=== PATIENT | female | born 1935 | race Caucasian/White ===

== ENCOUNTER 2025-06-09 09:17 | Emergency (ER) | payer MEDICARE, SELFPAY ==
--- NOTE | ~2025-06-09 | XR_ITS ---
EXAM/PROCEDURE: XR chest 1V portable - 06/09/2025 11:10 CDT HISTORY: 89 years old Female with syncope TECHNIQUE: Two view(s) of the chest. COMPARISON: 05/17/2024 FINDINGS: LUNGS/ PLEURA: No focal consolidation. No appreciable pneumothorax or large pleural effusion. HEART/ MEDIASTINUM: Heart appears normal in size. BONES: Degenerative changes. OTHER: Visualized upper abdomen is unremarkable. IMPRESSION: No acute process. Reviewed, dictated and finalized at location A. IMPRESSION: No acute process.
[2025-06-09 09:15] VITALS: BP 135/64; PULSE 74; RESP 20; TEMP 36.6; O2SAT 99
--- NOTE | 2025-06-09 09:17 | ECG_ITS ---
Test Date: 2025-06-09 09:17:21 Measurements Intervals [place] Rate: 69 P: 90 TN: 176 QRS: -28 QRSD: 113 T: 52 QT: 395 QTc: 423 Interpretive Statements SINUS RHYTHM BORDERLINE LEFT AXIS DEVIATION [QRS AXIS < -20] INCOMPLETE RIGHT BUNDLE BRANCH BLOCK [90+ ms QRS DURATION, TERMINAL R IN V1/V2, 40+ ms S IN I/aVL/V4/V5/V6] MINIMAL ST DEPRESSION [0.025+ mV ST DEPRESSION] No previous ECG available for comparison Electronically Signed On 06-10-2025 07:16:18 CDT by Amanda Dan M.D.
--- NOTE | 2025-06-09 09:31 | ECG_ITS ---
Test Date: 2025-06-09 10:08:08 Measurements Intervals [place] Rate: 67 P: 79 PA: 187 QRS: -34 QRSD: 107 T: 19 QT: 393 QTc: 417 Interpretive Statements SINUS RHYTHM LEFT AXIS DEVIATION [QRS AXIS < -30] INCOMPLETE RIGHT BUNDLE BRANCH BLOCK [90+ ms QRS DURATION, TERMINAL R IN V1/V2, 40+ ms S IN I/aVL/V4/V5/V6] No previous ECG available for comparison Electronically Signed On 06-09-2025 13:13:04 CDT by Jeffery Stern M.D.
--- OUTSIDE RECORDS SUMMARY | 2025-06-09 09:46 | XMS_ITS | Clinical Summary ---
Author Organization [facility] Address [address] [place] [address] Care Team Providers Care Chain Maker Name Role Phone Hernesto Terry MD Primary Care Provider [phone] Source Comments [facility],non-owned Affiliates and Associated Physician Practices is amultiple site organization consisting of ambulatory clinics and hospital sitesin [place], [place], [place] and [place]. This disclosure is being madepursuant to the Care Everywhere program and may not contain all information available regarding this patient. Last updated 18.[facility] Allergies Active Allergy Reactions Criticality Noted Date Comments Adhesive Sensitivity Rash Medium 10/20/2019 Red and itchy toes with applied bandaids Aspirin Rash Medium 06/05/2016 INTERNAL BLEEDING, HAD TO HAVE BLOOD TRANSFUSION AFTER TAKING ASPIRIN Gold Itching Low 07/31/2016 Lidocaine Rash Medium 10/20/2019 Nitrofurantoin Rash Medium 10/20/2019 Penicillins Anaphylaxis High 06/05/2016 PT ALMOST and heart stopped, LONG HOSPITALIZATION AFTER TAKING PENICILLIN Tree Nuts Angioedema High 10/20/2019 Lips swelled and itchy and scratchy throat as a child... Black walnuts and pecans Cetirizine Other Medium 10/20/2019 Made increase blood pressure Medications * Be aware that medications may not be up to date on this document. Alwaysverify current medications with the patient. levothyroxine (SYNTHROID) 75 MCG tablet Take 75 mcg by mouth once daily Active lisinopril (PRINIVIL; ZESTRIL) 20 MG tablet Take 20 mg by mouth 2 times daily Active LORazepam (ATIVAN) 2 MG tablet Take 1 mg by mouth 2 times daily Active pantoprazole EC (PROTONIX) 40 MG tablet Take 40 mg by mouth once daily Active montelukast (SINGULAIR) 10 MG tablet Take 10 mg by mouth at bedtime Active fluticasone-talya meterol (ADVAIR/WIXELA) 100-50 MCG/DOSE inhaler Inhale 1 puff by mouth at bedtime Active fluticasone propionate (FLONASE) 50 MCG/ACT nasal spray [place] 2 sprays into the nose once daily Active docusate sodium (COLACE) 100 MG capsule Take 100 mg by mouth 2 times daily 08/09/2016 Active fexofenadine (ARNULFO) 180 MG tablet Take 180 mg by mouth once daily as needed Active Multiple Vitamin (MULTI-VITAMINS ) TABS Take 1 tablet by mouth once daily Active carvedilol (COREG) 6.25 MG tablet Take 6.25 mg by mouth 2 times daily with morning and evening meal Active albuterol HFA (PROAIR HFA) 108 (90 Base) MCG/ACT inhaler Inhale 2 puffs by mouth every 6 hours as needed Active glycopyrrolate (ROBINUL) 1 MG tablet Take 1 mg by mouth 3 times daily Active vortioxetine (TRINTELLIX) 10 MG tablet Take 10 mg by mouth once daily Active atorvastatin (LIPITOR) 20 MG tabletIndicatio ns:only mon, wed, fri Take 20 mg by mouth at bedtime Reasons: only mon, wed, fri Active calcium-vitamin D (OS-HARRY 500 + D) 500-200 mg-unit tabletIndicatio ns:calcium 1200 and vit d 600 Take 1 tablet by mouth once daily Reasons: calcium 1200 and vit d 600 Active NIFEDIPINE PO Take 30 mg by mouth once daily Active sertraline (ZOLOFT) 25 MG tablet Take 25 mg by mouth once daily Active Active Problems Problem Noted Date Diagnosed Date Melanoma of toe, 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 (AF LURIA, FLUZONE TRIVALENT; 6MO+) (IIV3) 08/31/2015 INFLUENZA VACCINE 09/14/2019 Pneumococcal Pcv13 Conj 08/10/2016 Family History Medical History Relation Name Comments CAD (Coronary Artery Disease) Father Leukemia Mother Other - Cardiac Mother Relation Name Status Comments Father Mother Social History Tobacco Use Types Packs/Day Years Used Date Smoking Tobacco: Never Smokeless Tobacco: Never Alcohol Use Standard Drinks/Week Comments Not Currently 0 (1 standard drink = 0.6 oz pur e alcohol) Comments Unknown Sex and Gender Information Value Date Recorded Sex Assigned at Not on file Legal Sex Female 10:03 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 Gender Identity Not on file Sexual Orientation Not on file Last Filed Vital Signs Vital Sign Reading Time Taken Comments Blood Pressure 160/70 07/17/2020 12:55 PM CDT Pulse 75 07/17/2020 12:55 PM CDT Temperature 36.7 C (98 F) 07/17/2020 12:55 PM CDT Respiratory Rate 10 11/09/2019 11:2 0 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 Oxygen Saturation 98% 07/17/2020 12: 55 PM CDT Inhaled Oxygen Concentration 21% 08/2019 12:30 PM WELDER OXYHYDROGEN Weight 60.7 kg (133 lb 12.8 oz) 020 12:55 PM CDT Height 160 cm (5' 3) 07/17/2020 12:55 PM CDT Body Mass Index 23.7 07/17/2020 12:55 PM CDT Plan of Treatment Health Maintenance Due Date Last Done Comments BONE DENSITY TESTING 1937 DTAP/TDAP/TD VACCINES (1 - Tdap) 1956 ZOSTER VACCINE (1 of 2) 1987 Respiratory Syncytial Virus (RSV) Vaccine Pt: or over 60 yrs (1 - 1-dose 75+ series) 2012 PNEUMOCOCCAL VACCINE 50+ (2 of 2 - PCV20 or PCV21) 08/10/2017 08/10/2016 COVID-19 VACCINE (4 - season) 2024 09/27/2021, 02/23/2021, 01/26/2021 DEPRESSION SCREENING 12/01/2024 MEDICARE AWV CALENDAR YEAR 2024 INFLUENZA VACCINE (#1) 2025 9, 09/14/2019, 09/09/2018, Additional history exists HEPATITIS B VACCINE Aged Out No longe r eligible based on patient's age to complete this topic HIB VACCINE Aged Out No longer eligi ble based on patient's age to complete this topic HPV VACCINE Aged Out No longer eligi ble based on patient's age to complete this topic MENINGOCOCCAL (Group B) VACCINE SHARED DECISION-MAKING Aged Out No longer eligible based on patient's age to complete this topic MENINGOCOCCAL GROUPS A/C/Y/W VACCINE Aged Out No longer eligible based on patient's age to complete this topic Insurance MANAGED MEDICARE ADV MANAGED MEDICARE ADV Advance Directives Documents on File Type Date Recorded Patient Life Sciences Instructor Expl anation Adv Directive/Living Will/POA 11/11/2019 9:14 AM Care Teams Chain Maker Relationship Specialty Start Date End Date Hernesto Terry MD PCP - General 10/18/19
--- OUTSIDE RECORDS SUMMARY | 2025-06-09 09:47 | XMS_ITS | Continuity of Care Document ---
Author Organization [facility] Address [address] [place] [address] [place] [address] Phone Care Team Providers Care Information Security Analyst Name Role Phone Ivan Oliveira MD Unavailable Unavailable Advance Directives Directive Yes / No Effective Date File Name No Information Encounters Encounter Description Practice Location Reason(s) For Visit Diagnoses Date Provider Providers Copied on Encounter [facility], [id number] [place] [address] [address], [place], [place], [address], [place] tel:[phone] SEC [facility] No Information Oct-0 5-200 6 Roxanne Love. [address] [facility], [address], [place], [place], [address], [place]. tel:[phone] Family History Family Member Type Diagnosis Age At Onset No Information Payers Payer name Insurance type Covered republican ID Authoriza tion(s) No Information Social History [...]
--- OUTSIDE RECORDS SUMMARY | 2025-06-09 09:47 | XMS_ITS | Clinical Summary ---
Author Organization [facility] Address [address] [place] [address] Phone Care Team Providers Care Vp Integration Name Role Phone Wade Almaguer MD Primary Care Provider [phone] Allergies Active Allergy Reactions Criticality Noted Date Comments Aspirin Other (See Comments) 06/05/2016 INTERNAL BLEEDING, HAD TO HAVE BLOOD TRANSFUSION AFTER TAKING ASPIRIN Gold Au 198 Itching Low 07/31/2016 Penicillins Other (See Comments) 06/05/2016 DAUGHTER STS PT ALMOST , LONG HOSPITALIZATION AFTER TAKING PENICILLIN Unclassified Drug Swelling Low 08/08/2016 Medications vortioxetine (TRINTELLIX) 10 mg tablet Take 5 mg by mouth daily. Active carvedilol (COREG) 3.125 mg tablet Take 3.125 mg by mouth 2 times daily with meals. 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 Active enalapril (VASOTEC) 2.5 mg tablet Take 2.5 mg by mouth daily. Active fluticasone (FLONASE) 50 mcg/spray [place], Suspension Administer 2 Sprays in each nostril daily. Active fluticasone-talya meterol (ADVAIR DISKUS) 100-50 mcg/dose disk inhaler Take 1 Puff by inhalation Daily LATE . Active pantoprazole (PROTONIX) 40 mg Tablet, Delayed Release (E.C.) Take 40 mg by mouth daily. Active montelukast (SINGULAIR) 10 mg tablet Take 10 mg by mouth daily at bedtime. Active LORazepam (ATIVAN) 2 mg tablet Take 2 mg by mouth every 6 hours as needed for Anxiety. Active multivitamin (DAILY-FUAD) tablet Take 1 Tablet by mouth daily. Active fexofenadine (ARNULFO) 180 mg tablet Take 180 mg by mouth 1 time daily as needed for Allergies. Active naphazoline-phe niramine (OPCON-A) 0.39251-7.315 % solution 1 Drop 3 times daily as needed for Discomfort. Active DOCUSATE CALCIUM (STOOL SOFTENER ORAL) Take by mouth. Active docusate sodium (COLACE) 100 mg capsule Take 1 Capsule (100 mg) by mouth 2 times daily. 100 Capsule 1 6 Active Active Problems Problem Noted Date Diagnosed Date Status post total left knee replacement 10/09/20 16 Essential hypertension 08/09/2016 Hyponatremia 08/09/2016 Nausea 08/09/2016 Hypothyroidism 08/09/2016 Osteoarthritis of left knee 08/08/2016 Primary osteoarthritis of left knee 06/05/2016 Osteoarthritis of left knee 06/05/2016 Immunizations Immunization Administration Dates Next Due (PREVNAR 13)(6 WKS UP) PNEUM OCOCCAL CONJUGATE (PCV13) 0.5 ML, IM 08/10/2016 Influenza Seasonal Unspecified Formulation IM Family History Medical History Relation Name Comments Heart Disease Mother Relation Name Status Comments Father Mother Social History Tobacco Use Types Packs/Day Years Used Date Smoking Tobacco: Never Smokeless Tobacco: Never Alcohol Use Standard Drinks/Week Comments No 0 (1 standard drink = 0.6 oz pur e alcohol) Comments No Sex and Gender Information Value Date Recorded Sex Assigned at Not on file Legal Sex Female 2:51 PM CDT Gender Identity Not on file Sexual Orientation Not on file Last Filed Vital Signs Vital Sign Reading Time Taken Comments Blood Pressure 116/59 08/10/2016 1:00 PM CDT Pulse 73 08/10/2016 1:00 PM CDT Temperature 36.1 C (97 F) 08/10/2016 1:00 PM CDT Respiratory Rate 18 08/10/2016 1:00 PM CDT Oxygen Saturation 98% 08/10/2016 1:00 PM CDT Inhaled Oxygen Concentration - - Weight 62.6 kg (138 lb) 10/09/2016 1:28 PM 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 Height 157.5 cm (5' 2) 10/09/2016 1:28 PM 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 Body Mass Index 25.24 10/09/2016 1:28 PM 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 Plan of Treatment Health Maintenance Due Date Last Done Comments DTAP/TDAP/TD VACCINES (1 - Tdap) 1956 ZOSTER VACCINE (1 of 2) 1987 OSTEOPOROSIS SCREENING 2002 RSV VACCINE (60+ or ) (1 - 1-dose 75+ series) 2012 PNEUMOCOCCAL VACCINE 50+ YEARS (2 of 2 - PPSV23) 08/1008/10/2016 INFLUENZA VACCINE (#1) 2025 08/31/2015 Medical Devices Implanted Type Area Mainspring Former Device Identifier Shelf Expiration Date Model / Serial / Lot Cement [place] Hv 40g [id number] - [id number] Implanted:Qty: 1 on 08/08/2016 by Sudhir Shah MD at [facility] Cement Left: Knee [employer] [id number] 01/28/2018 [id number] / / [id number] Patella Gnsii Resurf 32mm 7603-2841 - [id number] Implanted:Qty: 1 on 08/08/2016 by Sudhir Shah MD at [facility] Knee Left: Knee [employer]INAL [employer]PHEW [employer] [id number] 03/27/2026 [id number] / / [id number] Description:All S&N recon kn ee components are processed on requisition,[id number]. Comp Fem Gnsii Cr Blackjack Dealer Lt 0918-3377 - [id number] Implanted:Qty: 1 on 08/08/2016 by Sudhir Shah MD at [facility] Knee Left: Knee [employer] [id number] 04/15/2026 [id number] / / [id number] Comp Tib Gnsii Blackjack Dealer Sz3 Lt 4791-0655 - [id number] Implanted:Qty: 1 on 08/08/2016 by Sudhir Shah MD at [facility] Knee Left: Knee [employer]O [id number] 05/28/2026 [id number] / / [id number] Ins Lgn Xlpe Dishd Sz3-4 [id number] - [id number] Implanted:Qty: 1 on 08/08/2016 by Sudhir Shah MD at [facility] Knee Left: Knee [employer] [id number] 04/22/2026 [id number] / / [id number] Insurance [facility] [id number] Advance Directives For more information, please contact: [phone] * Full Code (Latest Code Status on File) Date Activated Date Inactivated Comments 08/08/2016 1:51 PM 08/10/2016 6:23 PM * Full Code Date Activated Date Inactivated Comments 08/08/2016 8:38 AM 08/08/2016 1:51 PM Care Teams Vp Integration Relationship Specialty Start Date End Date Wade Almaguer MD [address] [facility] [address] [place] [id number] PCP - General Family Practice 07/10/16
--- OUTSIDE RECORDS SUMMARY | 2025-06-09 09:47 | XMS_ITS | Data Portability ---
Author Organization [facility] Address [address] [facility] [place] [address] Care Team Providers Care Trauma Doctor Name Role Phone RHETT TERRY Primary Care Provider Unavailabl e Assessment Encounter Date Assessment Date Assessment LastModified by Organization Details LastModified Time 10/15/2024 10/15/2024 Zofran for intermittent nausea but if it persists we may need to have an upper endoscopy versus surgical evaluation for this hernia management of GERD with PPI and sucralfate as well asthma discussed and stable she is actually tolerating the carvedilol dyslipidemia atorvastatin asthma Wixela and albuterol hypertension controlled hypothyroid levothyroxine follow up 3 months [email or web address] Not available 10/16/2024 14:15:43 01/31/2025 01/31/2025 doxycycline 100 b.i.d. 1 week other medicines we will continue and diagnosis in the assessment and plan discussed all questions answered see me 3 months [email or web address] Not available 02/27/2025 17:22:01 03/25/2025 03/25/2025 Doxycycline with the working diagnosis of cellulitis she will call if not improved [email or web address] Not available 04/16/2025 21:21:25 04/05/2025 04/05/2025 Not convinced that this is a infectious process at this time she has used hydrocortisone to no help she has been treated with antibiotics I am going to try some Elidel she will let me know in a week how it is doing [email or web address] Not available 04/09/2025 23:56:05 04/22/2025 04/22/2025 Steroids no help Elidel no help antibiotics no help dermatology referral Not available 04/22/2025 18:18:59 Plan of Treatment Reminders Order Date Submit Date Provider Last Modified By Organization Details Last Modified Time Details Appointments None recorde d. Lab None recorde d. Referral dermato logist referra l 2024 [facility], [address] [place] [address], [address], 16:40:01 Procedures None recorde d. Surgeries None recorde d. Imaging None recorde d. Medication Orders montelu kast 10 mg tablet 2024 025 [place] [address] [facility]55954, [address], [place], [id number], 12:00:24 lisinop ril 20 mg tablet 2024 025 [place] [address] [facility] #20890, [address], [id number], 12:00:24 pantopr azole 40 mg tablet, delayed release 2024 025 [place] [address] [facility] #66224, [address], [id number], 5 12:00:24 levothy roxine 75 mcg tablet 2024 025 [place] [address] [facility] #91558, [address], [place], [place], [id number], 5 12:00:24 Elidel 1 % topical cream 2024 025 [email or web address] [facility] #69430, [address], [id number], 16:09:46 doxycyc line hyclate 100 mg tablet 2024 025 [place] [address] [facility], [address], [place], [place], [id number], 10:48:09 doxycyc line hyclate 100 mg capsule 2024 025 [facility] #97980, [address], [place], [place], [id number], 12:10:11 ondanse bc HCl 4 mg tablet 2023 024 [facility] #50646, [address], [place], [place], [id number], 13:08:36 Patient TargetsNo targets recorded. Patient Instructions Encounter Date Encounter Id Patient Instructions Last Modified By Organization Details Last Modified Time 01/31/2025 [id number] A healthy lifestyle: care instructions [email or web address] Not available 01/31/2025 12:53:07 03/25/2025 [id number] A healthy lifestyle: care instructions [email or web address] Not available 03/25/2025 10:48:09 04/05/2025 [id number] A healthy lifestyle: care instructions [email or web address] Not available 04/05/2025 16:09:46 04/22/2025 [id number] A healthy lifestyle: care instructions [email or web address] Not available 04/22/2025 12:00:24 Reason for Referral [employer] Supervisor Referral for E ruption Referring Physician: Rhett Terry, Internal Medicine, Encounter Date: 04/22/2025 Problems Name Problem SNOMED Code Status Onset Date Resolution Date Notes Provider Name and Address Organization Details Recorded Time Essential hypertension 79242127 Active 2023 KEENAN [place], [place] [facility] 13:21:29 Hypothyroidis m 77695573 Active 2023 [place] [facility] 13:21:34 Asthma 817962511 Active 2023 KEE[place] [facility] 4 13:21:45 Chronic rhinitis 48151193 Active 2023 Kimberley Boyce MA null, [place] [facility] 4 13:22:04 Gastroesophag eal reflux disease 303167329 Active 2023 Kimberley Boyce [place] null, [place] [facility] 4 13:22:08 Overweight 054527505 Active 2023 Rhett Terry MD Attn: Accounting ,[address] [place], [address] , [facility] 4 13:03:09 Hyperlipidemi a 35396032 Active 2023 Rhett Terry MD Attn: Accounting ,[address] [place], [address] , [facility] - [facility] 4 13:03:13 Hiatal hernia 12632050 Active 2023 Rhett Terry MD Attn: Accounting ,[address] [place], [address] , [facility] - [facility] 4 20:09:20 Depressive disorder 03876529 Active 2024 Vanesa Watt RN null, [place] [facility] 5 13:06:31 Problem Notes None recorded. Procedures Surgical History Date Name Laterality Status Provider Name and Address Organization Details Recorded Time Amputation of toe completed Jesenia Valdez [place] 02/17/2024 10:37:58 total knee replacement completed Jesenia Valdez [place] [facility] 02/17/2024 10:39:34 Imaging Results None recorded. Procedure Notes None recorded. Medical Equipment None Reported. Allergies Allergen ID Allergen Name Allergen Category Reaction Reaction Severity Criticality Documentation Date Start Date Code Code System Note Provider Name and Address Organization Details Recorded Time 473770 aspirin medicatio n Not available Not available low 06/23/2024 1191 RxNorm anemi c Lizy Thompson [place], [place] [facility] 4 10:21:23 651486 Product containin g penicilli n (product) medicatio n cardiac arrest mild low 06/23/2024 49698 8001 SNOMED KEENAN [place], [place] [facility] 4 10:21:44 031029 aluminum aspirin Not available rash Not available high 01/31/20252015 611 RxNorm INTER NAL BLEED ING, HAD TO HAVE BLOOD TRANS FUSIO N AFTER TAKIN G ASPIR IN KEENAN [place], [place] [facility] 5 11:37:41 557230 cetirizin e medicatio n Not available Not available high 01/31/20252018 24438 RxNorm Made incre ase blood press ure unrec ogniz ed react ion (text : Other , code: 13510 07) (from exter nal sourc e) KEENAN [place], [place] [facility] 5 11:37:44 554772 gold keratinat e Not available itching Not available low 01/31/20252015 72065 RxNorm KEENAN [place] [facility] 5 11:37:46 647199 lidocaine medicatio n rash Not available high 01/31/20252018 6387 RxNorm KEENAN [place] [facility] 5 11:37:49 603213 nitrofura ntoin medicatio n rash Not available high 01/31/20252018 7454 RxNorm KEENAN [place] [facility] 5 11:37:52 Medications Name Sig Start Date Stop Date Status Note LastModified by Organization Details LastModified Time atorvastati n 40 mg tablet TAKE 1/2 TABLET BY MOUTH 3 TIMES A WEEK active Not Available Not Available No t Available carvedilol 6.25 mg tablet TAKE 1 TABLET BY MOUTH TWICE DAILY active Not Available Not Available No t Available doxycycline hyclate 100 mg capsule TAKE 1 CAPSULE BY MOUTH TWICE DAILY FOR 7 DAYS 03/24 completed Not Available Not Available Not Available benzonatate 200 mg capsule TAKE 1 CAPSULE BY MOUTH THREE TIMES DAILY FOR 7 DAYS 02/16 completed Not Available Not Available Not Available clotrimazol e-betametha sone 1 %-0.05 % lotion APPLY TOPICALLY TO THE AFFECTED AREA TWICE DAILY IN THE MORNING AND IN THE EVENING 04/05 completed Not Available Not Available Not Available sucralfate 1 gram tablet TAKE 1 TABLET BY MOUTH BEFORE MEALS AND AT BEDTIME active Not Available Not Available No t Available lisinopril 20 mg tablet TAKE 1 TABLET BY MOUTH TWICE DAILY active Not Available Not Available No t Available ondansetron HCl 4 mg tablet TAKE 1 TABLET BY MOUTH EVERY DAY NEEDED active Not Available Not Available No t Available Medrol (Jozef) 4 mg tablets in a dose pack Take 1 dose pk by oral route as directed. 2024 active Not Available Not Available Not Avai lable prednisone 20 mg tablet TAKE 2 TABLETS BY MOUTH EVERY DAY FOR 5 DAYS 02/16 completed Not Available Not Available Not Available pimecrolimu s 1 % topical cream APPLY TO AREA DAILY NEEDED active Not Available Not Available No t Available nifedipine ER 30 mg tablet,exte nded release TAKE 1 TABLET BY MOUTH EVERY DAY 2024 active Not Available Not Available Not Avai lable levothyroxi ne 75 mcg tablet TAKE 1 TABLET BY MOUTH EVERY MORNING ON AN EMPTY STOMACH active Not Available Not Available No t Available pantoprazol e 40 mg tablet,arslan yed release TAKE 1 TABLET BY MOUTH DAILY active Not Available Not Available No t Available omeprazole 20 mg capsule,del ayed release TAKE 1 CAPSULE BY MOUTH DAILY FOR 14 DAYS 01/31 completed Not Available Not Available Not Available montelukast 10 mg tablet TAKE 1 TABLET BY MOUTH DAILY active Not Available Not Available No t Available fluticasone 100 mcg-salmete rol 50 mcg/dose blistr powdr for inhalation INHALE 1 PUFF BY MOUTH TWICE DAILY active Not Available Not Available No t Available albuterol sulfate HFA 90 mcg/actuati on aerosol inhaler INHALE 2 PUFFS BY MOUTH EVERY 4 HOURS NEEDED active Not Available Not Available No t Available doxycycline hyclate 100 mg tablet TAKE 1 TABLET BY MOUTH TWICE DAILY FOR 7 DAYS active Not Available Not Available No t Available Trintellix 10 mg tablet TAKE 1 TABLET BY MOUTH DAILY 02/16 completed Not Available Not Available Not Available Trintellix 20 mg tablet TAKE 1 TABLET BY MOUTH EVERY DAY active Not Available Not Available No t Available Vitals Date Recorded Body height Body mass index (BMI) Body weight Heart rate Oxygen saturation Oxygen saturation in Arterial blood by Pulse oximetry Systolic And Diastolic Provider Name and Address Organization Details Last Updated DateTime 5 160.02 cm 23.3 kg/m2 78659.0 4 g 76 /min 97 % 97 % 120/64 mm[Hg] Tracie [facility] 5 11:37:29 Date Recorded Body height Body mass index (BMI) Body weight Heart rate Oxygen saturation Oxygen saturation in Arterial blood by Pulse oximetry Systolic And Diastolic Provider Name and Address Organization Details Last Updated DateTime 5 160.02 cm 23.9 kg/m2 48637.6 9 g 75 /min 98 % 98 % 112/68 mm[Hg] Lizy Thompson MA [facility] 5 09:54:49 Date Recorded Body height Body mass index (BMI) Body weight Heart rate Oxygen saturation Oxygen saturation in Arterial blood by Pulse oximetry Systolic And Diastolic Provider Name and Address Organization Details Last Updated DateTime 5 160.02 cm 23.9 kg/m2 09346.9 7 g 92 /min 97 % 97 % 128/64 mm[Hg] Tracie [facility] 5 14:51:58 Date Recorded Body height Body mass index (BMI) Body weight Heart rate Oxygen saturation Oxygen saturation in Arterial blood by Pulse oximetry Systolic And Diastolic Provider Name and Address Organization Details Last Updated DateTime 5 160.02 cm 22.3 kg/m2 32099.5 6 g 68 /min 97 % 97 % 124/68 mm[Hg] Lizy Thompson MA [facility] 5 11:25:06 Date Recorded Body height Body mass index (BMI) Body weight Heart rate Oxygen saturation Oxygen saturation in Arterial blood by Pulse oximetry Systolic And Diastolic Provider Name and Address Organization Details Last Updated DateTime 4 160.02 cm 24.4 kg/m2 94357.9 5 g 72 /min 98 % 98 % 110/58 mm[Hg] Jc Redmond MA [facility] 4 10:34:37 Social History Question Answer Notes LastModified by Organizat ion Details LastModified Time Tobacco Smoking Status Never Smoker KEENAN Fu[place], [place] [facility] 02/17/2024 10:36:21 Do You Have An Advance Directive? Yes Information n ot available 02/17/2024 Are You Blind Or Do You Have Difficulty Seeing? No Information n ot available 02/17/2024 What Is Your Level Of Caffeine Consumption? Moderate Information not available 02/17/2024 In The 14 Days Before Symptom Onset, Have You Had Close Contact With A Laboratory-confirm ed COVID-19 While That Case Was Ill? No Information n ot available 08/25/2024 In The 14 Days Before Symptom Onset, Have You Had Close Contact With A Person Who Is Under Investigation For COVID-19 While That Person Was Ill? No Information not available 08/25/2024 Have You Been To An Area Known To Be High Risk For COVID-19? No Information not available 08/25/2024 Are You Deaf Or Do You Have Serious Difficulty Hearing? Yes Information not available 02/17/2024 What Type Of Diet Are You Following? REGULAR Information n ot available 02/17/2024 Are There Any Guns Present In Your Home? No Information not available 02/17/2024 What Was The Date Of Your Most Recent Tobacco Screening? 04/22/2025 Information not available 04/22/2025 What Is Your Relationship Status? Information not available 02/17/2024 Do You Use Your Seat Belt Or Car Seat Routinely? Yes Information not available 02/17/2024 Do You Have Smoke And Carbon Monoxide Detectors In Your Home? Yes Information not available 02/17/2024 Do You Use Sunscreen Routinely? No Information not available 02/17/2024 Has Tobacco Cessation Counseling Been Provided? No Information not available 02/17/2024 Sex: Female Functional Status Question Answer Note LastModified by Organizat ion Details LastModified Time Do you use any illicit or recreational drugs? No Information not available 02/17/2024 Do you or have you ever used any other forms of tobacco or nicotine? No Information not available 02/17/2024 What is your level of alcohol consumption? None Information not available 02/17/2024 Are you currently employed? No Information not available 08/25/2024 Are you able to care for yourself? Yes Information n ot available 02/17/2024 What is your exercise level? Occasional Information not available 02/17/2024 Mental Status Question Answer Note LastModified by Organization D etails LastModified Time Do you feel stressed (tense, restless, nervous, or anxious, or unable to sleep at night)? [id number] Information not available 02/17/2024 Family History Nothing Reported. Medical History Condition Response Coronary Artery Disease N Other N High Blood Pressure N Atrial Fibrillation N Kidney or Bladder Problems N Thyroid Problems N GI Problems N Depression N COPD N Blood Clots N Skin Problems N Anemia N Heart Attack (DE) N Anxiety Disorder N Diabetes N Muscle, Joint, or Bone Problems N Seizures/Epilepsy N Acid Reflux (GERD) Y Cancer N Stroke N Asthma N Allergies Y High Cholesterol N Hepatitis N Liver Disease N Headaches N Heart Failure N Osteoporosis N Gynecological HistoryNo gynecological history recorded. Obstetrics History GPAL:G 0 P 0 0 0 0 Immunizations Vaccine Type Date Status Note Provider Nam e and Address Organization Details Recorded Time Influenza, high-dose, quadrivalent, PF 2 completed Kimberley [place] [facility] 06/23/2024 10:33:58 Influenza, high-dose, quadrivalent, PF 1 completed Kimber[place] [facility] 06/23/2024 10:33:58 Influenza, high-dose, quadrivalent, PF 0 completed Kimber[place] [facility] 06/23/2024 10:33:58 Influenza, high-dose, quadrivalent, PF 3 completed [place]EE[place] [facility] 06/23/2024 10:33:58 COVID-19, mRNA, LNP-S, PF, 100 mcg/0.5mL dose or 50 mcg/0.25mL dose 1 completed Kimber[place] [facility] 06/23/2024 10:33:58 COVID-19, mRNA, LNP-S, PF, 100 mcg/0.5mL dose or 50 mcg/0.25mL dose 1 completed [place] [facility] 06/23/2024 10:33:58 COVID-19, mRNA, LNP-S, PF, 100 mcg/0.5mL dose or 50 mcg/0.25mL dose 1 completed Kimber[place] [facility] 06/23/2024 10:33:58 COVID-19, mRNA, LNP-S, bivalent, PF, 50 mcg/0.5 mL or 25mcg/0.25 mL dose 2 completed [place] [facility] 06/23/2024 10:33:58 COVID-19, mRNA, LNP-S, PF, 50 mcg/0.5 mL 4 completed [place] [facility] 06/23/2024 10:33:58 pneumococcal polysaccharide PPV23 1 completed Kimberley [place] [facility] 06/23/2024 10:33:58 influenza, unspecified formulation 9 completed [place] [facility] 06/23/2024 10:33:58 Pneumococcal conjugate PCV 13 6 completed [place] [facility] 06/23/2024 10:33:58 Influenza, high-dose, trivalent, PF 8 completed [place] [facility] 06/23/2024 10:33:58 Influenza, high-dose, trivalent, PF 6 completed Kimber[place] [facility] 06/23/2024 10:33:58 Influenza, high-dose, trivalent, PF 4 completed [place] [facility] 06/23/2024 10:33:58 Influenza, high-dose, trivalent, PF 7 completed [place] [facility] 06/23/2024 10:33:58 Influenza, high-dose, trivalent, PF 5 completed [place] [facility] 06/23/2024 10:33:58 Influenza, high-dose, trivalent, PF 9 completed [place] [facility] 06/23/2024 10:33:58 Influenza, split virus, trivalent, preservative 3 completed [place] [facility] 06/23/2024 10:33:58 COVID-19, mRNA, LNP-S, PF, 50 mcg/0.5 mL 5 completed Tracie [place] [facility] 04/05/2025 13:48:53 Influenza, high-dose, trivalent, PF 4 completed Rhett Terry MD Attn: Accounting,[address] [place], [address], [place] [facility] 08/28/2024 20:06:00 Past Encounters Encounter ID Performer Location Encounter Start Date Encounter Closed Date Diagnosis/Indication Diagnosis SNOMED-CT Code Diagnosis ICD10 Code Diagnosis Note [id number] Rhett Terry MD [facility] (Adult Med) [address] [place] [phone] 02/17/2024 10:23:33 02/17/2024 11:35:27 Essential hypertension 54400786 I10 Asthma 814129027 J45.90 9 Chronic rhinitis 6626526 6 J31.0 Hypothyroidism 58703676 E03.9 Gastroesop hageal reflux disease without esophagitis 989407615 K21.9 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 [id number] MD [facility] (Adult Med) [address] [place] [id number] 06/23/2024 10:11:55 06/23/2024 10:33:26 Overweight 802672148 E66.3 Essential hypertension 10493106 I10 Hypothyroidism 25472402 E03.9 Asthma 468019232 J45.90 9 Chronic rhinitis 9613994 6 J31.0 Hyperlipidemia 92401721 E78.5 [id number] MD [facility] (Adult Med) [address] [place] [phone] 0 08/25/2024 10:17:02 08/25/2024 12:04:18 Nausea 206403365 R11.0 Administra tion of influenza vaccine 42545888 Z23 Chronic rhinitis 1176005 6 J31.0 Asthma 953451826 J45.90 9 Essential hypertension 87368101 I10 Gastroesop hageal reflux disease 146867708 K21.9 Hyperlipidemia 23233849 E78.5 Hypothyroidism 85011552 E03.9 Hiatal hernia 10588849 K 44.9 [id number] MD [facility] (Adult Med) [address] [place] [id number] 0 10/15/2024 10:16:29 10/15/2024 11:07:31 Nausea 895989705 R11.0 Asthma 076261293 J45.90 9 Chronic rhinitis 8948787 6 J31.0 Essential hypertension 54880098 I10 Gastroesop hageal reflux disease 886319350 K21.9 Hiatal hernia 56730304 K 44.9 Hyperlipidemia 19181122 E78.5 [id number] Rhett Terry MD [place] [address] [facility] [address] [place] [id number] 1 01/31/2025 11:10:28 01/31/2025 12:27:44 Body mass index 20-24 - normal 553069522 Z68.23 Overweight 074253072 E66 .3 Essential hypertension 80909797 I10 Hyperlipidemia 49283603 E78.5 Hypothyroidism 93068682 E03.9 Asthma 402800713 J45.90 9 Gastroesop hageal reflux disease 743438113 K21.9 Chronic rhinitis 9304736 6 J31.0 Cellulitis of left wrist 6845992347 4136768 L03.969 [id number] MD [facility] (Adult Med) [address] [place] [id number] 0 03/25/2025 09:40:10 03/25/2025 10:12:03 Body mass index 20-24 - normal 272679097 Z68.23 Overweight 777571290 E66 .3 Cellulitis of left upper limb 5169470238 5939422 L03.199 [id number] MD [facility] (Adult Med) [address] [place] [id number] 04/05/2025 14:16:47 04/05/2025 15:51:32 Body mass index 20-24 - normal 168233989 Z68.23 Overweight 062556092 E66 .3 Inflammato ry dermatosis 289471891 L30.9 [id number] Rhett Terry MD [facility] (Adult Med) [address] [place] [id number] 0 04/22/2025 10:53:22 04/22/2025 12:01:11 Gastroesophageal reflux disease without esophagitis 066115452 K21.9 Hypothyroidism 08852093 E03.9 Essential hypertension 07143028 I10 Asthma 173733554 J45.90 9 Body mass index 20-24 - normal 110955730 Z68.22 Eruption 331768155 R21 Health Concerns Section Related Observation LastModified by Organization Detai ls LastModified Time None Recorded Concern Status LastModified by Organization Details LastModified Time None Recorded Advance Directives Directive Y: Payers Insurance Date Sequence Insurance Name Policy Number Policy Jones Covered Member ID Jones Member ID Guarantor Name 01/31/[address] [facility] (O) Kena Alsop-Be rg [id number] Kena Alsop-Phelps 04/26/[address] [facility] (MEDICARE REPLACEMENT/ADVA NTAGE - HMO) [id number] Kena Price Alsop-By anabella [id number] Kena Alsop-Phelps 01/31/2025 1 [facility] Kena Alsop-Be rg [id number] Kena Alsop-Phelps 01/31/[address] [facility] (MEDICARE REPLACEMENT/ADVA NTAGE - HMO) Kena Alsop-Be rg [id number] Kena Alsop-Phelps 01/31/[address] [facility] (HMO) [id number] [address]ena Alsop-By rd [id number] Kena Alsop-Phelps 01/31/[address] [facility] Kena Alsop-Be rg [id number] Kena Alsop-Phelps Notes Date Note Type Note Provider Name and Address Organization Details Recorded Time 10/15/2024 text/html Asthma has been doing fine no cough or wheezing. Intermittent nausea from her hiatal hernia. She did see GI no interventions planned. Hyperlipidemia she does try to watch her intake of fat. Hypothyroid some fatigue but no heat or cold intolerance. Anxiety is doing stable on current medication. Chronic rhinitis little bit flared up given the weather outside Rhett Terry MD Attn: Accounting,[address] [facility], [place], [place], [address] [place] [address], [place] [facility] 10/16/2024 14:15:59 01/31/2025 text/html her blood pressu re has been doing fine asymptomatic from that GERD comes and goes she has had a little bit of pain left wrist and has been read without any fever or chills asthma has been doing okay energy level fair she has not had any heat or cold intolerance Rhett Terry MD Attn: Accounting, [address] [facility], [place], [address], [place] [facility] 02/27/2025 17:22:43 03/25/2025 text/html Red rash in the left forearm with some bumps that is not getting better despite some hydrocortisone Rhett Terry MD Attn: Accounting, [address] [facility], [place], [address], [place] [facility] 04/16/2025 21:21:42 04/05/2025 text/html Forearms not a w hole lot better Rhett Terry MD Attn: Accounting, [address] [place], [address], [place] [facility] 04/09/2025 23:56:19 04/22/2025 text/html Still with red r gabby left arm Rhett Terry MD Attn: Accounting, [address] [facility], [place], [address], [place] [facility] 04/22/2025 18:19:27 OBGyn Episode No OBEpisode recorded.
--- OUTSIDE RECORDS SUMMARY | 2025-06-09 09:47 | XMS_ITS | Data Portability ---
Author Organization [place] [employer] 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 Rcis variances may occur. Despite proofreading, typographical errors may occur. Occasional wrong-word or 'tpvip-[id number]-[id number]' substitutions may have occurred due to the inherent limitations of voice recording. Read the chart carefully and recognize, using context, where substitutions have occurred. Not available 02/19/2024 14:06:04 05/20/2024 05/20/2024 This note is dictated and transcribed by [employer]. Rcis variances may occur. Despite proofreading, typographical errors may occur. Occasional wrong-word or 'skfli-o-gnaw' substitutions may have occurred due to the inherent limitations of voice recording. Read the chart carefully and recognize, using context, where substitutions have occurred. Not available 05/20/2024 12:56:52 08/10/2024 08/10/2024 This note is dictated and transcribed by [employer]. Rcis variances may occur. Despite proofreading, typographical errors may occur. Occasional wrong-word or 'usqfp-y-rsbo' substitutions may have occurred due to the inherent limitations of voice recording. Read the chart carefully and recognize, using context, where substitutions have occurred. Not available 08/10/2024 13:29:35 11/09/2024 11/09/2024 This note is dictated and transcribed by [employer]. Rcis variances may occur. Despite proofreading, typographical errors may occur. Occasional wrong-word or 'ysqlp-x-soli' substitutions may have occurred due to the inherent limitations of voice recording. Read the chart carefully and recognize, using context, where substitutions have occurred. Not available 11/16/2024 10:43:36 02/24/2025 02/24/2025 This note is dictated and transcribed by [employer]. Rcis variances may occur. Despite proofreading, typographical errors may occur. Occasional wrong-word or 'nubgl-o-msaz' substitutions may have occurred due to the inherent limitations of voice recording. Read the chart carefully and recognize, using context, where substitutions have occurred. Not available 02/24/2025 11:22:39 Plan of Treatment Reminders Order Date Submit Date Provider Last Modified By Organization Details Last Modified Time Details Appointments Establish ed Patient 15 2024 09:30A M Gregory Ba DPM Not available Not available Not available Lab None recorded. Referral None recorded. Procedures None recorded. Surgeries None recorded. Imaging None recorded. Medication Orders None recorded. Patient TargetsNo targets recorded. Patient InstructionsNo instructions recorded. Reason for Referral None Reported. Problems Name Problem SNOMED Code Status Onset Date Resolution Date Notes Provider Name and Address Organization Details Recorded Time Hearing loss 48508186 Active 2017 Not Available [facility] 3 12:11:03 Acute sinusitis 73858961 Active 2021 Not Available [facility] 3 12:11:03 Heartburn 51658185 Active 2017 Not Available [facility] 3 12:11:03 Asthma 157572138 Active Not Available [facility] 3 12:11:03 Anxiety disorder 595411973 Active 2017 Not Available [facility] 3 12:11:03 Pigmented skin lesion 437090010 Active 2018 Not Available [facility] 3 12:11:03 Wears glasses 879459937 Active 2017 Not Available [facility] 3 12:11:03 Gastroesop hageal reflux disease 424846292 Active Not Available [facility] 3 12:11:03 Osteoarthr itis of knee 641645243 Active Not Available [facility] 3 12:11:03 Atopic dermatitis 79973520 Completed Not Available [facility] 3 01:33:20 Flank pain 540987340 Active 2021 Not Available [facility] 3 12:11:03 Gastroesop hageal reflux disease without esophagiti s 789146733 Active 2021 Not Available [facility] 3 12:11:03 Eruption 864121443 Active Not Available [facility] 3 12:11:03 Thoracic back sprain 143171184 Completed 201603/29/2019 Not Available [facility] 3 01:33:20 Low back pain 648651308 Completed 201603/29/2019 Cha Hilliard RN null, [place] [employer] 3 11:57:52 Back problem 891589719 Active 2017 Not Available [facility] 3 12:11:03 Current tear of medial cartilage AND/OR meniscus of knee Active Not Available [facility] 3 12:11:03 Knee pain Completed Not Available [facility] 3 01:33:21 Bronchitis 05697147 Completed Not Available [facility] 3 01:33:21 Depressive disorder 05681084 Active Not Available [facility] 3 12:11:03 Sinusitis 51582747 Active 2021 Not Available [facility] 3 12:11:03 Arthritis 9131369 Active 2017 Not Available [facility] 3 12:11:03 Cystitis 89836593 Completed Not Available [facility] 3 01:33:21 Hypothyroi dism 18744591 Active 2017 Not Available [facility] 3 12:11:03 Nausea 318522503 Active 2021 Not Available [facility] 3 12:11:03 Acute urinary tract infection 347020627 Active 2021 Not Available [facility] 3 12:11:03 Seasonal allergy 604190777 Active 2017 Not Available [facility] 3 12:11:03 Anxiety 35994357 Active Not Available [facility] 3 12:11:03 Hyperlipid emia 18543307 Active Not Available [facility] 3 12:11:03 Essential hypertensi on 07649036 Active Not Available [facility] 3 12:11:03 Lumbar discogenic pain 979047404 Completed 201603/29/2019 Not Available [facility] 3 01:33:23 Derangemen t of knee 88501415 Active Not Available [facility] 3 12:11:04 Urinary tract infectious disease 05376115 Active 2021 Not Available [facility] 3 12:11:04 Posterior rhinorrhea 66730634 Active 2021 Not Available [facility] 3 12:11:04 Chronic rhinitis 57345018 Active 2020 Not Available [facility] 3 12:11:04 Dystrophia unguium 14554877 Active 2018 Not Available [facility] 3 12:11:04 Pain in limb 30064044 Active Not Available [facility] 3 12:11:04 Kidney stone 51869416 Active 2021 Not Available [facility] 3 12:11:04 Low back pain 036532056 Active 2022 Not Available [facility] 3 12:11:03 Skin lesion 59457561 Active 2022 Not Available [facility] 3 12:11:04 Cough 06555576 Active 2022 SNEHA Bowling null, [facility] 3 14:01:41 Hearing loss 26447405 Active 2022 Amy Suarez RN null, [facility] 3 14:25:55 COVID-19 482845697 Active 2022 Amy Suarez RN null, [facility] 3 16:34:51 Anemia 375492235 Active 2023 Cecile hubbard, [facility] 4 11:51:24 Bowel problem 878445799 Active 2023 Cecile Ch null, [facility] 4 11:51:42 Ear problem 198206089 Active 2023 Cecile Ch null, [facility] 4 11:52:41 Astigmatis m 86827234 Active 2023 Cecile Ch null, [facility] 4 11:52:53 Heart disease 98799551 Active 2023 Cecile Ch null, [facility] 4 11:53:03 Osteoporos is 35109160 Active 2023 Cecile Ch null, [facility] 4 11:56:20 Skin problem 648498605 Active 2023 Cecile Ch null, [facility] 4 11:56:41 Disorder of thyroid gland 19367322 Active 2023 Cecile Ch null, [facility] 4 11:56:51 Unable to cut own toenails 981363259 Active 2023 Gregory Ba DPM [address], [address], [place], [address] , [facility] 4 14:06:10 Pain in toe 108931648 Active 2023 Gregory Ba DPM [address], [address], [place], [address] , [facility] 4 12:57:21 History of amputation of lesser toe 328046873 Active 2023 Gregory Ba DPM [address], [address], [place], [address] , [facility] 4 13:29:48 Notes:FEMALE PROBLEMS/INFECT IONS, CANCER Problem Notes None recorded. Procedures Surgical History Date Name Laterality Status Provider Name and Address Organization Details Recorded Time 02/25/20 25 Nail Debridement completed Gregory Ba DPM [address], [address], [place], [address], [employer] 02/24/2025 11:22:29 11/09/20 24 Nail Debridement completed Gregory Ba DPM [address], [address], [place], [address], [employer] 11/16/2024 10:43:01 08/10/20 24 Nail Debridement completed Gregory Ba DPM [address], [address], [place], [address], [employer] 08/10/2024 13:28:54 05/20/20 24 Nail Debridement completed Gregory Ba DPM [address], [address], [place], [address], [employer] 05/20/2024 13:04:19 02/19/20 24 Nail Debridement completed Gregory Ba DPM [address], [address], [place], [address], [employer] 05/20/2024 13:03:37 08/12/20 23 Transitional_Care_ Management completed Claudette Breaux RN [employer] 08/06/2023 17:12:31 06/07/20 21 Most Recent Bone Density completed Not Available [facility] 01/29/2023 01:18:14 04/10/20 20 excision of basal cell carcinoma completed Not Available [facility] 01/29/2023 01:18:24 11/09/20 19 Amputation of toe completed Not Available [facility] 01/29/2023 01:18:24 08/08/20 16 Knee Replacement completed Not Available [facility] 01/29/2023 01:18:24 Carpal tunnel surgery completed Not Available [facility] 01/29/2023 01:18:24 Cholecystectomy completed Not Available [facility] 01/29/2023 01:18:24 Cyst Removal completed Not Available [facility] 01/29/2023 01:18:24 Partial hysterectomy completed Not Available [facility] 01/29/2023 01:18:24 Imaging Results None recorded. Procedure Notes None recorded. Medical Equipment None Reported. Allergies Allergen ID Allergen Name Allergen Category Reaction Reaction Severity Criticality Documentation Date Start Date Code Code System Note Provider Name and Address Organization Details Recorded Time 3047 walnut allergeni c extract food facial swelling Not available Not available 01/29/2023 39283 0 RxNorm Not Available [facility] 3 01:58:41 3048 Product containin g penicilli n (product) medicatio n other Not available Not available 01/29/2023 35279 8001 SNOMED passe d out, heart stopp ed beati ng Not Available [facility] 3 01:58:41 3049 pecan nut food facial swelling Not available Not available 01/29/2023 61393 UNK Not Available [facility] 3 01:58:41 3050 Macrobid medicatio n hives itching Not available Not available Not available 01/29/2023 17946 1 RxNorm Not Available [facility] 3 01:58:42 3051 lidocaine medicatio n Not available Not available Not available 01/29/2023 6387 RxNorm Not Available [facility] 3 01:58:42 3052 latex environme nt,medica tion Not available Not available Not available 01/29/2023 09473 91 RxNorm Not Available [facility] 3 01:58:42 3053 aspirin medicatio n other Not available Not available 01/29/2023 1191 RxNorm anemi c Not Available [facility] 3 01:58:42 3054 adhesive tape environme nt,medica tion itching Not available Not available 01/29/2023 06178 UNK Not Available [facility] 3 01:58:42 Medications Name Sig Start Date Stop Date Status Note LastModified by Organization Details LastModified Time nifedipin e ER 30 mg tablet,ex tended release 24 hr T1 07/21 completed Not Available Not Available Not Available glycopyrr olate 1 mg tablet Take 1 tablet 3 times a day by oral route. active Not Available Not Available No t Available cyclobenz aprine 10 mg tablet Take 1 tablet 3 times a day by oral route. 10/10 completed Not Available Not Available Not Available atorvasta tin 40 mg tablet TAKE 1/2 TABLET BY MOUTH 3 TIMES A WEEK active Not Available Not Available No t Available clotrimaz ole-betam ethasone 1-0.5 % topical cream 05/02 completed Not Available Not Available Not Available carvedilo l 6.25 mg tablet TAKE 1 TABLET BY MOUTH TWICE DAILY active Not Available Not Available No t Available doxycycli ne hyclate 100 mg capsule TAKE 1 CAPSULE BY MOUTH TWICE DAILY FOR 7 DAYS active Not Available Not Available No t Available atorvasta tin 20 mg tablet Take 0.5 tablets every day by oral route. 10/11 completed Not Available Not Available Not Available enalapril maleate 10 mg tablet active Not Available Not Available Not Available clindamyc in HCl 300 mg capsule active Not Available Not Available Not Available enalapril maleate 5 mg tablet Take 1 tablet twice a day by oral route. active Not Available Not Available No t Available nystatin 100,000 unit/gram topical ointment APPLY TO THE AFFECTED AREA(S) BY TOPICAL ROUTE ONCE A DAY active Not Available Not Available No t Available fluconazo le 150 mg tablet Take 1 tablet by oral route. active Not Available Not Available No t Available benzonata te 200 mg capsule TAKE 1 CAPSULE BY MOUTH THREE TIMES DAILY FOR 7 DAYS 10/06 completed Not Available Not Available Not Available sulfameth oxazole 400 mg-trimet hoprim 80 mg tablet TK ONE T PO BID FOR THREE DAYS 12/23 completed Not Available Not Available Not Available Patanol 0.1 % eye drops 04/29 completed Not Available Not Available Not Available clotrimaz ole-betam ethasone 1 %-0.05 % lotion APPLY TOPICALL Y TO THE AFFECTED AREA TWICE DAILY IN THE MORNING AND IN THE EVENING active Not Available Not Available No t Available sucralfat e 1 gram tablet TAKE 1 TABLET BY MOUTH BEFORE MEALS AND AT BEDTIME active Not Available Not Available No t Available lisinopri l 20 mg tablet TAKE 1 TABLET BY MOUTH TWICE DAILY active Not Available Not Available No t Available ondansetr on HCl 4 mg tablet TAKE 1 TABLET BY MOUTH EVERY DAY NEEDED active Not Available Not Available No t Available prednison e 20 mg tablet TAKE 2 TABLETS BY MOUTH EVERY DAY FOR 5 DAYS 10/06 completed Not Available Not Available Not Available dexametha sone 6 mg tablet Take 1 tablet every day by oral route for 12 days. 10/06 completed Not Available Not Available Not Available enalapril maleate 2.5 mg tablet Take 1 tablet twice a day by oral route for 90 days. 12/11 completed increase d to 5mg bid Not Available Not Available Not Available clonazepa m 1 mg tablet Take 1 tablet 3 times a day by oral route as needed for 10 days. active Not Available Not Available No t Available pimecroli mus 1 % topical cream APPLY TO AREA DAILY NEEDED active Not Available Not Available No t Available Zithromax Z-Jozef 250 mg tablet Take by oral route.2t abs first day then 1 daily active Not Available Not Available No t Available pantopraz ole 40 mg intraveno us solution Inject by intraven ous route. 2015 active Not Available Not Available Not Avai lable clindamyc in HCl 150 mg capsule 04/27 completed Not Available Not Available Not Available Nexium 40 mg capsule,d elayed release TAKE ONE CAPSULE TWICE DAILY active Not Available Not Available No t Available triamcino lone acetonide 0.5 % topical ointment APPLY A THIN LAYER TO THE AFFECTED AREA(S) BY TOPICAL ROUTE 2 TIMES PER DAY active Not Available Not Available No t Available nifedipin e ER 30 mg tablet,ex tended release TAKE 1 TABLET BY MOUTH EVERY DAY active Not Available Not Available No t Available acetamino phen 300 mg-codein e 30 mg tablet 04/27 completed Not Available Not Available Not Available fexofenad ine 180 mg tablet TAKE 1 TABLET BY MOUTH DAILY active Not Available Not Available No t Available levofloxa brianne 250 mg tablet Take 1 tablet every day by oral route for 7 days. active Not Available Not Available No t Available ciproflox acin 500 mg tablet TAKE 1 TABLET BY MOUTH TWICE DAILY 09/03 completed Not Available Not Available Not Available sulfameth oxazole 800 mg-trimet hoprim 160 mg tablet TAKE 1 TABLET BY MOUTH TWICE DAILY FOR 10 DAYS 08/22 completed ABX switched to doxycycl ine by Dr Terry Not Available Not Available Not Available tramadol 50 mg tablet TK ONE T PO EVERY SIX H PRN P 02/01 completed Not Available Not Available Not Available triamcino lone acetonide 0.1 % topical cream APPLY A THIN LAYER TO THE AFFECTED AREA(S) BY TOPICAL ROUTE 2 TIMES PER DAY PRN; mix with nystatin active Not Available Not Available No t Available carvedilo l 3.125 mg tablet TAKE TWO TABLETS TWICE DAILY ( MORNING AND EVENING ) active Not Available Not Available No t Available levothyro xine 75 mcg tablet TAKE 1 TABLET BY MOUTH EVERY MORNING ON AN EMPTY STOMACH active Not Available Not Available No t Available Tessalon Perles 100 mg capsule 1 in the morning and 1 at bedtime with a full glass of water active Not Available Not Available No t Available famotidin e 20 mg tablet Take 1 tablet twice day by oral route. 10/[address] Terry stopped med switched to sucralfa te 1 gm due to unable to tolerate the famotidi ne Not Available Not Available Not Available lorazepam 2 mg tablet TAKE ONE TABLET 3 TIMES DAILY active Not Available Not Available No t Available hydrocodo ne 7.5 mg-acetam inophen 325 mg tablet TAKE ONE TABLET 3 TIMES DAILY NEEDED 10/10 completed Not Available Not Available Not Available pantopraz ole 40 mg tablet,de layed release TAKE 1 TABLET BY MOUTH DAILY active Not Available Not Available No t Available triamcino lone acetonide 0.1 % topical ointment 07/26 completed Not Available Not Available Not Available nystatin 100,000 unit/gram topical cream APPLY TO THE AFFECTED AREA(S) BY TOPICAL ROUTE 2 TIMES PER DAY PRN; mix with triamcin olone active Not Available Not Available No t Available ranitidin e 150 mg tablet 1 twice a day active Not Available Not Available No t Available clotrimaz ole-betam ethasone 1 %-0.05 % topical cream APPLY TO AFFECTED AREA AT BEDTIME 07/26 completed Not Available Not Available Not Available Advair Diskus 250 mcg-50 mcg/dose powder for inhalatio n 02/07 completed Not Available Not Available Not Available hydrochlo rothiazid e 12.5 mg capsule TAKE ONE TABLET DAILY active Not Available Not Available No t Available nystatin- triamcino lone 100,000 unit/g-0. 1 % topical cream Apply 1 applicat ion twice a day by topical route as needed for 90 days. 04/27 completed Not Available Not Available Not Available diclofena c potassium 50 mg tablet active Not Available Not Available Not Available sertralin e 25 mg tablet Take 2 tablets every day by oral route for 30 days. 04/02 completed Pt stopped taking on her own Not Available Not Available Not Available omeprazol e 20 mg capsule,d elayed release TAKE 1 CAPSULE BY MOUTH DAILY FOR 14 DAYS active Not Available Not Available No t Available estradiol 2 mg tablet TAKE 1 TABLET DAILY active Not Available Not Available No t Available monteluka st 10 mg tablet TAKE 1 TABLET BY MOUTH DAILY active Not Available Not Available No t Available lorazepam 1 mg tablet TAKE 1 TABLET BY MOUTH TWICE DAILY active Not Available Not Available No t Available azelastin e 137 mcg (0.1 %) nasal spray USE 2 SPRAYS IN EACH NOSTRIL TWICE DAILY 01/23 completed Not Available Not Available Not Available Cheratuss in AC 10 mg-100 mg/5 mL oral liquid Take 10 mL 3 times a day by oral route. active Not Available Not Available No t Available fluticaso ne 100 mcg-salme terol 50 mcg/dose blistr powdr for inhalatio n INHALE 1 PUFF BY MOUTH TWICE DAILY active Not Available Not Available No t Available Nasonex 50 mcg/actua tion [place] active Not Available Not Available Not Available ibuprofen 600 mg tablet TAKE 1 TABLET BY MOUTH THREE TIMES DAILY WITH FOOD NEEDED 09/03 completed Not Available Not Available Not Available levofloxa brianne 500 mg tablet Take 1 tablet every day by oral route. 01/28 completed Not Available Not Available Not Available methylpre dnisolone 4 mg tablets in a dose pack FOLLOW PACKAGE [employer]IO NS active Not Available Not Available No t Available albuterol sulfate HFA 90 mcg/actua tion aerosol inhaler INHALE 2 PUFFS BY MOUTH EVERY 4 HOURS NEEDED active Not Available Not Available No t Available colchicin e 0.6 mg tablet Take 1 tablet every day by oral route for 14 days. active Not Available Not Available No t Available Cipro 250 mg tablet Take 1 tablet every 12 hours by oral route. 02/04 completed Not Available Not Available Not Available Percocet 5 mg-325 mg tablet Take 0.5 tablets every 8 hours by oral route as needed for 30 days. 05/30 completed Not Available Not Available Not Available nifedipin e ER 60 mg tablet,ex tended release Take 1 tablet every day by oral route. 10/13 completed Not Available Not Available Not Available ondansetr on 4 mg disintegr ating tablet 10/13 completed Not Available Not Available Not Available cefdinir 300 mg capsule Take 1 capsule every 12 hours by oral route. active Not Available Not Available No t Available fluticaso ne propionat e 50 mcg/actua tion nasal spray,rafat pension SHAKE LIQUID AND USE 2 SPRAYS IN EACH NOSTRIL EVERY DAY IN THE MORNING active Not Available Not Available No t Available sertralin e 50 mg tablet TK 1 T PO QD active Not Available Not Available No t Available doxycycli ne hyclate 100 mg tablet TAKE 1 TABLET BY MOUTH TWICE DAILY FOR 7 DAYS active Not Available Not Available No t Available ipratropi um bromide 21 mcg (0.03 %) nasal spray SPRAY ONCE IN EACH NOSTRIL DAILY 01/23 completed Not Available Not Available Not Available Coreg 12.5 mg tablet 1/2 tablet twice a day 09/29 completed Not Available Not Available Not Available bupropion HCl XL 150 mg 24 hr tablet, extended release TAKE ONE TABLET DAILY active Not Available Not Available No t Available nitrofura ntoin monohydra te/macroc rystals 100 mg capsule 10/13 completed Not Available Not Available Not Available Atrovent HFA 17 mcg/actua tion aerosol inhaler INHALE 1 PUFF BY MOUTH EVERY DAY 01/23 completed Not Available Not Available Not Available magnesium active Not Available Not Rose ilable Not Available Vitamin C active Not Available Not Rose ilable Not Available vitamin A active Not Available Not Rose ilable Not Available calcium 1200 + extra 600 DAILY 2019 active Not Available Not Available Not Avai lable vitamin E active Not Available Not Rose ilable Not Available selenium active Not Available Not Avai lable Not Available niacin active Not Available Not Availa ble Not Available folic acid active Not Available Not Available Not Available biotin active Not Available Not Availa ble Not Available Benadryl at bedtime 2014 active Not Available Not Available Not Avai lable riboflavi n (vitamin B2) active Not Available Not Available Not Available Vitamin D active Not Available Not Rose ilable Not Available coenzyme Q10 active Not Available Not Available Not Available Stool Softener 2020 active Not Available Not Available Not Avai lable boron active Not Available Not Availa ble Not Available Zyrtec 02/01 completed Not Available Not Available Not Available Green Tea active Not Available Not Rose ilable Not Available multivita min 1 TAB daily 2019 active Not Available Not Available Not Avai lable lutein active Not Available Not Availa ble Not Available lycopene active Not Available Not Avai lable Not Available Vitamin B6 active Not Available Not Available Not Available alpha lipoic acid active Not Available Not Available Not Available thiamine HCl (bulk) active Not Available Not Available Not Available hydrochlo rothiazid e 12.5 mg tablet Take 1 tablet every day by oral route. 07/17 completed Not Available Not Available Not Available omeprazol e 20 mg tablet,de layed release Take 1 tablet twice a day by oral route as directed for 30 days. active Not Available Not Available No t Available zinc oxide-vit egan B5-vit E active Not Available Not Available Not Available B12 active Not Available Not Availa ble Not Available Vicodin ES 7.5 mg-300 mg tablet Take 1 tablet 3 times a day by oral route for 10 days. 02/26 completed Not Available Not Available Not Available chromium aa reina-manga nese-zinc active Not Available Not Available No t Available zeaxanthi n (bulk) active Not Available Not Available Not Available Trintelli x 5 mg tablet Take 1 tablet every day by oral route. active Not Available Not Available No t Available Trintelli x 10 mg tablet TAKE 1 TABLET BY MOUTH DAILY 11/14 completed Not Available Not Available Not Available Trintelli x 20 mg tablet TAKE 1 TABLET BY MOUTH EVERY DAY active Not Available Not Available No t Available Paxlovid 300 mg (150 mg x 2)-100 mg tablets in a dose pack Take 1 dose pk by oral route as directed for 5 days. 10/06 completed Not Available Not Available Not Available zinc (citrate) 11 mg chewable tablet Take by oral route. active Not Available Not Available No t Available Vitals Date Recorded Body height Body mass index (BMI) Body weight Provider Name and Address Organization Details Last Updated DateTime 02/19/2024 160.02 cm 24.8 kg/m2 66879.93 g Cecile Dima [facility] Kiddie Kist [facility] 02/19/2024 11:50:38 Date Recorded Body height Body mass index (BMI) Body weight Systolic And Diastolic Provider Name and Address Organization Details Last Updated DateTime 02/24/2025 160.02 cm 24.8 kg/m2 49737.93 g 99/53 mm[Hg] Rebecca Valdes [facility] Kiddie Kist [facility] 02/24/2025 10:41:53 Date Recorded Body height Body mass index (BMI) Body weight Heart rate Respiratory rate Oxygen saturation Oxygen saturation in Arterial blood by Pulse oximetry Systolic And Diastolic Provider Name and Address Organization Details Last Updated DateTime 4 160.02 cm 24.8 kg/m2 80628.9 3 g 73 /min 14 /min 97 % 97 % 137/70 mm[Hg] Neda Boateng [facility] Kiddie Kist [facility] 4 12:29:35 Date Recorded Body height Body mass index (BMI) Body weight Heart rate Oxygen saturation Oxygen saturation in Arterial blood by Pulse oximetry Systolic And Diastolic Provider Name and Address Organization Details Last Updated DateTime 4 160.02 cm 24.8 kg/m2 32446.9 3 g 72 /min 98 % 98 % 136/72 mm[Hg] SNEHA Rivera [facility] Kiddie Kist [facility] 4 11:54:31 Date Recorded Body height Body mass index (BMI) Body weight Heart rate Respiratory rate Oxygen saturation Oxygen saturation in Arterial blood by Pulse oximetry Systolic And Diastolic Provider Name and Address Organization Details Last Updated DateTime 4 160.02 cm 24.8 kg/m2 36654.9 3 g 70 /min 14 /min 98 % 98 % 122/76 mm[Hg] Neda Boateng [facility] Kiddie Kist [facility] 4 10:43:20 Social History Question Answer Notes LastModified by Organizat ion Details LastModified Time Tobacco Smoking Status Never Smoker Not Available [facility] 01/29/2023 01:07:04 Do You Have An Advance Directive? No Pt Has POA-daughter , Candy Dixon MIGRATION.[id number] Information not available 01/29/2023 Are You Blind Or Do You Have Difficulty Seeing? Yes Wears Glasses MIGRATION.67204 60349 Information not available 01/29/2023 What Is Your Level Of Caffeine Consumption? Moderate MIGRATION.55694 33260 Information not available 01/29/2023 How Much Tobacco Do You Chew? None MIGRATION.88738 38214 Information not available 01/29/2023 In The 14 Days Before Symptom Onset, Have You Had Close Contact With A Laboratory-confi rmed COVID-19 While That Case Was Ill? No MIGRATION.11087 18953 Information not available 01/29/2023 In The 14 Days Before Symptom Onset, Have You Had Close Contact With A Person Who Is Under Investigation For COVID-19 While That Person Was Ill? No MIGRATION.08111 57958 Information not available 01/29/2023 Are You Deaf Or Do You Have Serious Difficulty Hearing? Yes Bilateral Hearing Aids MIGRATION.89099 81257 Information not available 01/29/2023 What Type Of Diet Are You Following? CARBOHYDRATE Low Carb, Fat, And Sodium MIGRATION.95386 70746 Information not available 01/29/2023 Which Illicit Or Recreational Drugs Have You Used? None MIGRATION.03306 71299 Information not available 01/29/2023 What Is The Highest Grade Or Level Of School You Have Completed Or The Highest Degree You Have Received? [id number] MIGRATION.60989 76549 Information not available 01/29/2023 Have There Been Any Changes To Your Family Or Social Situation? No MIGRATION.07299 18286 Information not available 01/29/2023 What Is The Fluoride Status Of Your Home? Fluoridated MIGRATION.72424 07773 Information not available 01/29/2023 Are There Any Guns Present In Your Home? No MIGRATION.11857 76185 Information not available 01/29/2023 Do You Use Insect Repellent Routinely? No MIGRATION.27267 80152 Information not available 01/29/2023 Where Do You Live? 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 Yes MIGRATION.95481 39965 Information not available 01/29/2023 What Was The Date Of Your Most Recent Tobacco Screening? 10/06/2023 [email or web address] Information not available 10/06/2023 Do You Have Any Pets? No MIGRATION.78184 53160 Information not available 01/29/2023 What Is Your Relationship Status? MIGRATION.31462 78200 Information not available 01/29/2023 Do You Use Your Seat Belt Or Car Seat Routinely? Yes MIGRATION.39675 54563 Information not available 01/29/2023 Do You Have Smoke And Carbon Monoxide Detectors In Your Home? Yes MIGRATION.29739 25033 Information not available 01/29/2023 Are You Passively Exposed To Smoke? No MIGRATION.62787 42889 Information not available 01/29/2023 Are There Any Smokers In Your House? No MIGRATION.33802 12476 Information not available 01/29/2023 How Much Tobacco Do You Smoke? No MIGRATION.91272 96910 Information not available 01/29/2023 What Types Of Sporting Activities Do You Participate In? None MIGRATION.74366 37733 Information not available 01/29/2023 Do You Use Sunscreen Routinely? Yes MIGRATION.81021 41818 Information not available 01/29/2023 Has Tobacco Cessation Counseling Been Provided? No Not Needed-never Smoked MIGRATION.96254 00177 Information not available 01/29/2023 Have You Recently Traveled Abroad? No MIGRATION.02540 16782 Information not available 01/29/2023 Do You Have Difficulty Walking Or Climbing Stairs? Yes MIGRATION.85353 64508 Information not available 01/29/2023 Do You Have Any Dietary Restrictions? No MIGRATION.42729 74570 Information not available 01/29/2023 Sex: Female Functional Status Question Answer Note LastModified by Organizat ion Details LastModified Time Do you use any illicit or recreational drugs? No MIGRATION.455667 6874 Information not available 01/29/2023 Do you or have you ever used any other forms of tobacco or nicotine? No MIGRATION.016784 4290 Information not available 01/29/2023 What is your level of alcohol consumption? None MIGRATION.654103 6988 Information not available 01/29/2023 Do you or have you ever used smokeless tobacco? Never used smokeless tobacco MIGRATION.437244 7393 Information not available 01/29/2023 Do you have transportation difficulties? No MIGRATION.403107 7654 Information not available 01/29/2023 Are you able to walk? YESWOREST MIGRATION.152355 3775 Information not available 01/29/2023 Do you have difficulty doing errands alone? Yes MIGRATION.613640 3971 Information not available 01/29/2023 Are you able to care for yourself? No MIGRATION.980422 3259 Information not available 01/29/2023 What is your occupation? retired MIGRATION.753971 0078 Information not available 01/29/2023 Do you have difficulty dressing or bathing? Yes MIGRATION.320656 7164 Information not available 01/29/2023 Do you or have you ever used e-cigarettes or vape? Never used electronic cigarettes MIGRATION.466761 7621 Information not available 01/29/2023 What is your exercise level? None MIGRATION.674190 5554 Information not available 01/29/2023 Mental Status Question Answer Note LastModified by Organizat ion Details LastModified Time Do you feel stressed (tense, restless, nervous, or anxious, or unable to sleep at night)? [id number] MIGRATION.[id number] 26 Information not available 01/29/2023 Do you have difficulty concentrating, remembering or making decisions? No MIGRATION.12065749 26 Information not available 01/29/2023 Family History Relationship Description Onset Age of this Age Resolved Age Notes LastModified by Organization Details LastModified Time Mother Heart disease MIGRATION.835 [id number] Not available 01/29/2023 01:18:26 Mother Leukemia (morphologic abnormality) MIGRATION.877 [id number] Not available 01/29/2023 01:18:26 Maternal Aunt Heart disease MIGRATION.246 [id number] Not available 01/29/2023 01:18:26 Mother Arthritis Not available 02/19/2024 11:57:56 Mother Hypertensive disorder Not available 2023 11:58:28 Mother Family history of malignant neoplasm LEUKEM [place] Not available 02/19/2024 11:58:56 Unspecified Relation Arthritis AUNTS- SEVERA L Not available 02/19/2024 11:57:56 Unspecified Relation Hypertensive disorder GRANDP ARENTS Not available 02/19/2024 11:58:28 Father Hypertensive disorder Not available 2023 11:58:27 Medical History Condition Response NERVE DISEASE N BLINDNESS N RHEUMATIC FEVER N KIDNEY STONES N BLADDER PROBLEMS N MRSA N OTHER # 1 Y POLIO N LUNG DISEASE/DISORDER N RADIATION / CHEMOTHERAPY N COPD N Other # 2 N BLOOD DISEASES N EAR OR HEARING PROBLEMS Y MUMPS N DEPRESSION (INCLUDING POST ) Y BOWEL PROBLEMS Y STROKE/TIA N THYROID DISEASE Y ULCERS N BENIGN PROSTATIC HYPERPLASIA N MEASLES N MYOCARDIAL INFARCTION N OBESITY N GERD/NAUSEA Y ANEURYSM N URINARY/BLADDER/KIDNEY PROBLEMS N CORONARY ARTERY DISEASE (CAD) N ADDICTION CONCERNS N Impotence N ENDOMETRIOSIS N USE OF BLOOD THINNERS N SKIN PROBLEMS Y GASTROINTESTINAL DISORDER N PERIPHERAL VASCULAR DISEASE N MUSCLE,JOINT OR BONE PROBLEMS N GASTROINTESTINAL BLEEDING N BLOOD CLOTS N ASTHMA Y CATARACTS N ERECTILE DYSFUNCTION N VARICOSITIES N GI PROBLEMS N Low Testosterone N INFERTILITY N AIDS/HIV N CHEMOTHERAPY / RADIATION N LIVER DISEASE N MALE HYPOGONADISM N HYPERTENSION Y Deficiency N TOURETTE'S N ANXIETY DISORDER Y BLOOD TRANSFUSION N ANEMIA/BLOOD DISORDER Y CHRONIC EAR INFECTIONS N BRONCHITIS N TUBERCULOSIS N GLAUCOMA N FOOT PROBLEM N DIVERTICULITIS N SLEEP APNEA N CHICKENPOX N ALLERGIES/HAYFEVER Y INFECTIOUS DISEASE N PROSTATE N HEART ARRHYTHMIA N INSOMNIA N HIGH CHOLESTEROL / HYPERLIPIDEMIA Y EYE PROBLEMS Y HYPERTHYROIDISM N EDEMA N CHRONIC PAIN SYNDROME N HYPOTHYROIDISM Y CAROTID BLOCKAGE N CONSTIPATION N BACK / NECK PROBLEMS Y HAVE YOU BEEN HOSPITALIZED OR SEEN IN [facility] IN THE PAST YEAR ? N ATHEROSCLEROSIS N BREAST PROBLEMS N DIALYSIS N ECZEMA N OSTEOPOROSIS Y ARTHRITIS Y APPENDICITIS N DIABETES, TYPE N BAD TEETH N ENT N HEARTBURN / REFLUX Y AUTISM SPECTRUM DISORDER (ASD) N HEPATITIS / LIVER DISEASE N GOUT N SLEEP DISORDER N ALZHEIMER'S DISEASE N Brain Problems N DEMENTIA N HERPES N SEIZURES/EPILEPSY N HEADACHES/MIGRAINES N VASCULAR DISEASE N PACEMAKER N Blood Disorder N DIZZINESS N HEART DISEASE/HEART PROBLEMS Y KIDNEY DISEASE N MULTIPLE SCLEROSIS N CANCER: SPECIFY Y CARDIAC ARRHYTHMIA N ATRIAL FIBRILLATION N Gall Stones N PULMONARY EMBOLISM N AUTOIMMUNE DISEASE N Gynecological History Statement/Question Response Date of Last Pap Date of Last Mammogram Date of Last Colonoscopy Most Recent Bone Density 06/07/2021 Obstetrics History GPAL:G 0 P 0 0 0 0 Immunizations Vaccine Type Date Status Note Provider Nam e and Address Organization Details Recorded Time Influenza, high-dose, quadrivalent, PF 3 completed SNEHA [place] [facility] 09/18/2023 14:57:42 Influenza, split virus, trivalent, preservative 3 completed Not Available [facility] 08/06/2023 04:53:01 COVID-19, mRNA, LNP-S, PF, 100 mcg/0.5mL dose or 50 mcg/0.25mL dose 1 completed Not Available [facility] 08/06/2023 04:53:01 COVID-19, mRNA, LNP-S, PF, 100 mcg/0.5mL dose or 50 mcg/0.25mL dose 1 completed Not Available [facility] 08/06/2023 04:53:01 COVID-19, mRNA, LNP-S, PF, 100 mcg/0.5mL dose or 50 mcg/0.25mL dose 1 completed Not Available [facility] 08/06/2023 04:53:01 Pneumococcal conjugate PCV 13 6 completed Not Available [facility] 08/06/2023 04:53:01 Influenza, split virus, trivalent, preservative 5 completed Not Available [facility] 08/06/2023 04:53:01 Influenza, high-dose, quadrivalent, PF 1 completed Not Available [facility] 08/06/2023 04:53:01 pneumococcal polysaccharide PPV23 1 completed Not Available [facility] 08/06/2023 04:53:01 Influenza, high-dose, quadrivalent, PF 2 completed Not Available [facility] 08/06/2023 04:53:01 Influenza, high-dose, quadrivalent, PF 0 completed Not Available [facility] 08/06/2023 04:53:01 Influenza, high-dose, trivalent, PF 9 completed Not Available [facility] 08/06/2023 04:53:01 Influenza, high-dose, trivalent, PF 8 completed Not Available [facility] 08/06/2023 04:53:01 Influenza, high-dose, trivalent, PF 7 completed Not Available [facility] 08/06/2023 04:53:01 Influenza, high-dose, trivalent, PF 6 completed Not Available [facility] 08/06/2023 04:53:01 Influenza, high-dose, trivalent, PF 5 completed Not Available [facility] 08/06/2023 04:53:01 Influenza, high-dose, trivalent, PF 4 completed Not Available [facility] 08/06/2023 04:53:01 Past Encounters Encounter ID Performer Location Encounter Start Date Encounter Closed Date Diagnosis/Indication Diagnosis SNOMED-CT Code Diagnosis ICD10 Code Diagnosis Note [id number] Rhett Terry MD S_G Internal Med [facility] [address] [facility] [address] [address] 01/30/2021 00:00:00 02/17/2021 21:10:09 [id number] Rhett Terry MD S_G Internal Med [facility] 15 [address] [facility] [address] [address] 05/02/2021 00:00:00 05/12/2021 17:00:36 [id number] Rhett Terry MD S_G Internal Med [facility] 15 [address] [facility] [address] [address] 06/05/2021 00:00:00 06/10/2021 22:26:17 [id number] Rhett Terry MD [facility] Internal Med [facility] 15 [address] [facility] [address] [address] 09/04/2021 00:00:00 09/04/2021 22:15:07 [id number] Rhett Terry MD [facility]_G Internal Med [facility] 15 [address] [facility] [address] [address] 01/01/2022 00:00:00 01/05/2022 16:42:00 [id number] Rhett Terry MD [facility] Internal Med [facility] 15 [address] [facility] [address] [address] 04/02/2022 00:00:00 04/21/2022 15:06:48 [id number] Rhett Terry MD S_G Internal Med [facility] 15 [address] [facility] [address] [address] 07/24/2022 00:00:00 08/10/2022 16:48:34 [id number] Rhett Terry MD S_G Internal Med [facility] 15 [address] [facility] [address] [address] 08/06/2022 00:00:00 08/25/2022 11:07:47 [id number] Rhett Terry MD [facility] Internal Med [address] [address] 09/03/2022 00:00:00 09/04/2022 10:30:43 [id number] Rhett Terry MD [facility] Internal Med [facility] [address] [place] [address] 10/18/2022 00:00:00 10/27/2022 12:49:06 [id number] Rhett Terry MD [facility] Internal Med [facility] [address] [place] [address] 01/23/2023 00:00:00 01/23/2023 23:12:45 [id number] Rhett Terry MD [facility] Internal Med [facility] [address] [place] [address] 06/04/2023 10:29:18 06/04/2023 11:12:21 Adult health examination 117645777 Z00.00 Depression screening 171 255290 Z13.31 meds working well Body mass index 25-29 - overweight 250728494 Z68.25 Essential hypertension 30871628 I10 Skin lesion 36633802 L98 .9 Chronic rhinitis 0928267 6 J31.0 Anxiety disorder 6083970 06 F41.9 Asthma 442369536 J45.90 9 Gastroesop hageal reflux disease 141754560 K21.9 Hyperlipidemia 37948446 E78.5 Hypothyroidism 59515892 E03.9 [id number] Rhett Terry MD S_G Internal Med [facility] [address] [facility] [place] [address] 08/12/2023 11:05:22 08/12/2023 12:48:19 Transition of care 0020276781 105 Z75.8 Transition Care Management Questionna ireDate of Discharge 08/01/23Admi ssion Date: 07/29/23Dat e of Contact: 1st attempt: 08/06/23Reas on for Admission: Short of breathDisc harge [facility]( es): Hypoxia, hyponatrem ia, COBID-19Di agnostic Test(s) Performed: Other: chest xray, blood workDid your hospital physician prescribe any new medicines upon discharge? yes: Guaifenesi nDid you pecan picker your prescripti on(s) and begin taking them as the doctor prescribed ? yesDo you have any questions about your new medication s? noDid the hospital set up a follow up appointmen t with your PCP? no (Office contacted patient and got appointmen t scheduled for 08/12/23 at 10:15am.)D id the hospital set up an appointmen t up with any specialist s? noDid the hospital set up Home Health Care or Outpatient therapy? noDid the hospital set you up with any equipment before discharge? noDo you have all the equipment you need to perform daily living activities ? yesPerform ed by: (include credential s) Riya Breaux RN COVID-19 816132509 U07.1 [id number] Rhett Terry MD [facility] Internal Med [facility] [address] [address] 10/06/2023 11:06:38 10/06/2023 12:02:17 Eruption 437807124 R21 Renewal of prescription 923481007 Z76.0 Chronic rhinitis 9392595 6 J31.0 Anxiety 59143868 F41.9 Asthma 300318271 J45.90 9 Essential hypertension 87840391 I10 [id number] Gregory Ba DPM [facility] Pod[facility] [place] [address] [address] 02/19/2024 11:41:10 02/19/2024 14:21:34 Dystrophia unguium 93623654 L60.3 Nails 1 through 10 were debrided with sharp mechanical debridemen t without incident. Nails were debrided and greater than 50% length and thickness where needed. Unable to cut own toenails 554982048 Z74.1 [id number] Gregory Ba DPM [facility] [place] [address] [address] 05/20/2024 12:25:19 05/21/2024 09:52:34 Dystrophia unguium 90639398 L60.3 Nails 1 through 9 were debrided with sharp mechanical debridemen t without incident. Nails were debrided and greater than 50% length and thickness where needed. Unable to cut own toenails 245760808 Z74.1 Pain in toe 113769801 M7 9.676 secondary to toenails [id number] Gregory Ba DPM [facility] [place] [address] [address] 08/10/2024 11:50:48 08/10/2024 14:59:37 Pain in toe 983488127 M79.676 secondary to toenails Unable to cut own toenails 698599144 Z74.1 Dystrophia unguium 83903 009 L60.3 Nails 1 through 9 were debrided with sharp mechanical debridemen t without incident. Nails were debrided and greater than 50% length and thickness where needed. 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 Nails were debrided and greater than 50% length and thickness where needed. Unable to cut own toenails 638561313 Z74.1 [id number] Gregory Ba DPM [facility] Podiat[facility] [place] [address] [facility] [address] [place] [address] 02/24/2025 10:18:14 02/24/2025 11:13:57 Unable to cut own toenails 790447698 Z74.1 Dystrophia unguium 05963 009 L60.3 Nails 1 through 9 were debrided with sharp mechanical debridemen t without incident. Nails were debrided and greater than 50% length and thickness where needed. Health Concerns Section Related Observation LastModified by Organization Detai ls LastModified Time None Recorded Concern Status LastModified by Organization Details LastModified Time None Recorded Advance Directives Directive N: pt has POA-daughterYu Payers Insurance Date Sequence Insurance Name Policy Number Policy Jones Covered Member ID Jones Member ID Guarantor Name 06/06/2025 1 [facility] (MEDICARE REPLACEMENT/ ADVANTAGE - HMO) [id number] Kena Dee [facility] [id number] Kena Phelps Notes Date Note Type Note Provider Name and Address Organization Details Recorded Time 02/19/2024 text/html . Patient is an 88-year-old female who returns the office for routine foot care. Patient states she has pain in her toenails and she is unable bend cut them. Patient states they become long she denies any redness or drainage from the nails. Patient denies any other complaints. Gregory Ba DPM [address], [place], [address], [employer] 05/20/2024 13:03:41 05/20/2024 text/html . Patient is an 88-year-old female who returns for routine foot care. Patient states overall she is doing well she denies any open wounds or pain to the foot. Patient states that she has elongated toenails which she can not cut. Patient denies any other complaints. Gregory Ba DPM [address], [address], [place], [address], [employer] 05/20/2024 13:04:30 08/10/2024 text/html . Patient is an 88-year-old female who returns the office for follow-up on routine foot care. 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 Patient denies any recent skin changes. Patient denies any new complaints and would like her nails cut. Gregory Ba DPM [address], [address], [place], [address], [employer] 08/10/2024 14:06:50 11/09/2024 text/html . Patient is an 89-year-old female who returns the office for painful nails that are elongated. Patient is unable cut them. Patient denies any other complaints. Gregory Ba DPM [address], [facility] [address], [place], [address], [email or web address] 11/16/2024 10:43:54 02/24/2025 text/html . Patient is an 89-year-old female who returns the office for follow-up on routine foot care. Patient has thickened elongated toenails she is unable to cut them and would like to have them cut as her toenails become painful when elongated. Patient denies any other complaints. Gregory Ba DPM [address], [facility] [address], [place], [address], [employer] 02/24/2025 11:22:53 OBGyn Episode No OBEpisode recorded.
--- NOTE | 2025-06-09 11:01 | ED_ITS ---
HPI - Syncope General Chief Complaint: Weakness Stated Complaint: weak/lightheaded Time Seen by Provider: 06/09/25 09:20 History of Present Illness HPI narrative: 89-year-old female with history of hypertension, hyperlipidemia, thyroid disease presents to the emergency department for syncopal event that occurred at 0830 this morning. Patient's daughter is at bedside to assist with history. Patient reportedly went to the bathroom to have a bowel movement, began having diarrhea and became lightheaded, nauseous and diaphoretic. Her caregiver went to check on her and moved her to the bedroom where the patient lost consciousness. She did not hit her head. EMS was contacted the patient was transferred to the ED. upon my evaluation the patient has no complaints. She denies associated chest pain, abdominal pain, headache, vision changes, focal numbness or weakness, melena or hematochezia, dysuria or hematuria. Denies history of cardiac arrhythmias. She does note that she completed a round of steroids yesterday for what sounds like an asthma exacerbation. She states she was feeling short of breath up until yesterday but that has since resolved. Related Data Allergies Allergy/AdvReac Type Severity Reaction Status Date / Time Penicillins Allergy Severe Anaphylaxis Verified 06/09/25 09:25 pecan nut Allergy Intermediate Swelling Verified 06/09/25 09:25 of Lip/Tongue/Throat walnut Allergy Intermediate Swelling Verified 06/09/25 09:25 of Lip/Tongue/Throat aspirin Allergy Mild Unknown Verified 06/09/25 09:25 Review of Systems 2 Review of Systems: All systems reviewed & are unremarkable except as noted in HPI and below Exam 2 Narrative: GENERAL: Well-appearing, well-nourished, and in no acute distress. HEAD: Normocephalic, atraumatic. EYES: PERRLA and EOMI. ENT: Nares clear, no rhinorrhea or epistaxis. Mucous membranes moist. NECK: Supple. CHEST: Clear to auscultation. No respiratory distress. HEART: Regular rate and rhythm. No murmur heard. Normal peripheral pulses. ABDOMEN: Soft, nontender, nondistended, normal active bowel sounds. EXTREMITIES: Normal range of motion. No edema. SKIN: Warm, dry, no rash. NEURO: No focal deficits. Alert and oriented x4. Cranial nerves 2-12 grossly intact. Strength 5/5 in BUE and BLE. Sensation intact throughout Course Vital Signs Vital signs: Vital Signs Temperature 97.9 F 06/09/25 09:15 Pulse Rate 74 06/09/25 09:15 Respiratory Rate 20 06/09/25 09:15 Blood Pressure 135/64 06/09/25 09:15 Pulse Oximetry 99 06/09/25 09:15 Oxygen Delivery Room Air 06/09/25 09:15 Temperature 97.9 F 06/09/25 09:15 Pulse Rate 91 06/09/25 11:50 Respiratory Rate 16 06/09/25 11:36 Blood Pressure 140/71 06/09/25 11:50 Pulse Oximetry 98 06/09/25 11:36 Oxygen Delivery Room Air 06/09/25 09:15 MDM - Syncope MDM Narrative Medical decision making narrative: 89-year-old female with history of hypertension, hyperlipidemia, thyroid disease presents to the ED with daughter at bedside for syncopal event that occurred prior to arrival. Patient reportedly was having a bowel movement when she began having diarrhea, became nauseous and lightheaded. Her caregiver with her to the bedroom and she lost consciousness or when bed. She denies associated chest pain or shortness of breath. Patient was transported to the ED via EMS for further evaluation. On my evaluation she has no complaints. EKG shows normal sinus rhythm with rate of 69 ppm, normal CA interval, normal QRS duration, normal QTC, T-waves appear peaked in V2, no ST elevations or depressions, no reciprocal changes. Troponin is undetectable. Chemistries show no electrolyte derangements with normal potassium. Magnesium within normal limits. BUN is mildly elevated at 25, fluids provided. CBC shows no leukocytosis or anemia. UA with 2+ leuk esterase and 2150 white blood cells. Patient denies signs or symptoms of UTI, will wait for culture results prior to treatment. D-dimer is normal when age adjusted. Low suspicion for PE given no tachycardia or hypoxia, currently denying chest pain or shortness of breath, no recent surgeries or hospitalizations, no hemoptysis. Orthostatic vital signs are normal. Patient and family at bedside updated on results. Patient continues to remain asymptomatic. She ambulated to the bathroom without difficulty or ataxia. Her presentation is consistent with vasovagal syncope. I encouraged increased fluid intake and follow-up with PCP. Discussed strict ED return precautions. Patient and family are agreeable with the plan verbalized understanding. Discharged in stable condition. Lab Data 06/09/25 11:06 06/09/25 11:06 Labs: Lab Results 06/09/25 06/09/25 Range/Units 11:06 11:35 WBC 9.2 (4.5-10.0) K/mm3 RBC 3.91 L (4.2-5.4) M/mm3 Hgb 12.5 (12.0-15.0) g/dL Hct 38.3 (37.0-47.0) % MCV 98.0 (80-100) fl MCH 32.0 (26-34) pg MCHC 32.6 (32-36) g/dl RDW 13.5 (11.5-14.5) % Plt Count 229 (150-375) k/mm3 MPV 12.3 H (7.4-10.4) fl Immature Gran % (Auto) 0.3 (0-0.5) % Neut % (Auto) 59.6 (45.5-73.1) % Lymph % (Auto) 25.2 (18.3-44.2) % [place] % (Auto) 12.0 H (2.6-8.5) % Eos % (Auto) 2.4 (0-4.4) % Baso % (Auto) 0.5 (0.2-1.2) % Lymph # (Auto) 2.31 (0.9-3.2) K/mm3 [place] # (Auto) 1.1 H (0.1-0.6) K/mm3 Eos # (Auto) 0.2 (0-0.3) K/mm3 Baso # (Auto) 0.1 (0.0-0.1) K/mm3 Abs Immat Gran (auto) 0.03 (0.00-0.031) K/mm3 Absolute Neuts (auto) 5.5 (1.3-6.7) K/mm3 Absolute Nucleated RBC 0.000 (0.0-0.012) K/mm3 Nucleated RBC % 0.0 (0.0-0.2) % PT 12.8 (11.1-14.7) Seconds INR 1.0 APTT 24.9 (22.3-36.8) Seconds D-Dimer 0.61 H (<0.48) ug/mL Sodium 135 L (137-145) mmol/L Potassium 4.0 (3.4-5.0) mmol/L Chloride 102 (98-107) mmol/L Carbon Dioxide 23 (22-30) mmol/L Anion Gap 10 (4-12) mmol/L BUN 25 H (7-17) mg/dL Creatinine 0.91 (0.7-1.0) mg/dL Estim Creat Clear Calc 32 ml/min Estimated GFR 58 L (59 - ) Glucose 155 H (65-110) mg/dL Calcium 9.3 (8.4-10.2) mg/dL Magnesium 2.1 (1.6-2.3) mg/dL Total Bilirubin 0.3 (0.2-1.3) mg/dL AST 34 (14-36) U/L ALT 26 (6-35) U/L Alkaline Phosphatase 79 (38-126) U/L Troponin I < 0.012 (0.000-0.034) ng/mL NT-Pro-B Natriuret Pep 478 H (19.9-100) pg/mL Total Protein 7.5 (6.3-8.2) g/dL Albumin 4.4 (3.5-5.1) g/dL Urine Color Yellow (Yellow) Urine Appearance Clear (Clear) Urine pH 7.5 (5.0-9.0) Ur Specific [place] 1.018 (1.001-1.035) Urine Protein Trace (Negative) mg/dL Urine Glucose (UA) Negative (Negative) mg/dL Urine Ketones Trace H (Negative) mg/dL Ur Blood (Man) Negative (Negative) Urine Nitrate Negative (Negative) Urine Bilirubin Negative (Negative) Urine Urobilinogen 0.2 (<2.0) mg/dL Leukocyte Esterase Rfl 2+ H (Negative) JOANNE/UL Urine RBC 0-2 (0-2) /hpf Urine WBC 21-50 H (0-3) /hpf Ur Squamous Epith Cells None seen (Few) /hpf Urine Bacteria None seen /hpf Urine Casts 0-2 Discharge Plan Discharge Clinical Impression: Vasovagal syncope Patient Disposition: Home Condition: Stable Instructions: Antibiotic Form, Syncope (DC) Additional Instructions: You were evaluated in the emergency department after passing out while on the toilet. Your workup here is reassuring. Your presentation is consistent with vasovagal syncope as discussed. Please make sure to drink plenty of fluids and follow-up closely with her primary care provider. Return to the emergency department if you develop chest pain, shortness of breath, you lose consciousness again or other concerning symptoms. Patient Language: Mozambican Follow-up/Referrals: Harrison,MD Hernesto [Primary Care Provider] -
[2025-06-09 11:10] LABS: Hematocrit 38.3 % (37.0-47.0); Hemoglobin 12.5 g/dL (12.0-15.0); Immature Granulocyte Percent A 0.3 % (0-0.5); Lymphocytes Absolute Auto 2.31 K/mm3 (0.9-3.2); Mean Corpuscular HGB Conc 32.6 g/dl (32-36); Mean Corpuscular Hemoglobin 32.0 pg (26-34); Mean Corpuscular Volume 98.0 fl (80-100); Nucleated Red Blood Cells Absolute Auto 0.000 K/mm3 (0.0-0.012); Nucleated Red Blood Cells Perc 0.0 % (0.0-0.2); Platelet Count Result 229 k/mm3 (150-375); Red Blood Count 3.91 M/mm3 (4.2-5.4); White Blood Count 9.2 K/mm3 (4.5-10.0)
[2025-06-09 11:22] LABS: Alanine Aminotransferase 26 U/L (6-35); Albumin Level 4.4 g/dL (3.5-5.1); Alkaline Phosphatase 79 U/L (38-126); Anion Gap 10 mmol/L (4-12); Aspartate Amino Transferase 34 U/L (14-36); Bilirubin,Total 0.3 mg/dL (0.2-1.3); Blood Urea Nitrogen 25 mg/dL (7-17); Calcium 9.3 mg/dL (8.4-10.2); Carbon Dioxide 23 mmol/L (22-30); Chloride 102 mmol/L (98-107); Estimated CRCL calculation 32 ml/min; Estimated Glomerular Filt Rate 58; Glucose 155 mg/dL (65-110); Magnesium 2.1 mg/dL (1.6-2.3); Potassium 4.0 mmol/L (3.4-5.0); Sodium 135 mmol/L (137-145); Total Protein 7.5 g/dL (6.3-8.2)
[2025-06-09 11:34] LABS: NT Pro B Type Natriuretic Pept 478 pg/mL (19.9-100); Troponin I < 0.012 ng/mL (0.000-0.034)
[2025-06-09 11:36] VITALS: BP 155/68; PULSE 72; RESP 16; O2SAT 98
[2025-06-09 11:36] LABS: INR 1.0; Partial Thromboplastin Time 24.9 Seconds (22.3-36.8); Prothrombin Time 12.8 Seconds (11.1-14.7)
[2025-06-09] MEDS: SODIUM CHLORIDE 0.9% IV 1,000 ML 999 ML IV CONT (11:38)
[2025-06-09 11:46] LABS: Add Urine Microscopic? YES; Appearance Urine Clear (Clear); Glucose Urine UA Negative (Negative); Leukocyte Esterase Ur 2+ LEU/UL (Negative); Nitrate Urine Negative (Negative); Non Pathogenic Casts 0-2; Specific Grav Ur 1.018 (1.001-1.035)
[2025-06-09 11:49] VITALS: BP 146/78; BP 149/64; PULSE 88; PULSE 98
[2025-06-09 11:50] VITALS: BP 140/71; PULSE 91
[2025-06-09 12:53] VITALS: BP 146/64; PULSE 75; RESP 18; O2SAT 99
== END 2025-06-09 12:58 | disposition home or self-care (01) ==
PROVIDERS: Emergency Provider Physician Assistant; PCP Internal Medicine
DX: R55 Syncope and collapse (principal); I10 Essential (primary) hypertension; E78.5 Hyperlipidemia, unspecified; E07.9 Disorder of thyroid, unspecified
CPT/HCPCS: 36415; 71045; 80053; 81001; 83735; 83880; 84484; 85025; 85380; 85610; 85730; 87086; 93005; 96360; 99284; J7030

== ENCOUNTER 2025-07-28 09:19 | Outpatient (CLI) | payer MEDICARE, SELFPAY ==
--- OUTSIDE RECORDS SUMMARY | 2006-11-04 08:00 | XMS_ITS | Continuity of Care Document ---
Author Organization [facility] Address [address] [place] [address] [place] [address] Phone Care Team Providers Care Software Validation Technician Name Role Phone Ivan Oliveira MD Unavailable Unavailable Advance Directives Directive Yes / No Effective Date File Name No Information Encounters Encounter Description Practice Location Reason(s) For Visit Diagnoses Date Provider Providers Copied on Encounter [facility], [id number] [place] [address] [address], [place], [place], [id number], [place] tel:[phone] SEC [facility] No Information Oct-0 5-200 6 Roxanne Love. [address] [facility], [address], [place], [place], [id number], [place]. tel:[phone] Family History Family Member Type Diagnosis Age At Onset No Information Payers Payer name Insurance type Covered democrat ID Authoriza tion(s) No Information Social History Type Description Quantity Date Captured Comments Sex Female Smoking Status No Information Chief Complaint And Reason For Visit No Information Reason For Referral Reason For Referral No Information History Of Present Illness Encounter Date Complaint History Of Prese nt Illness No Information Functional Status Date Functional Assessmen t No Information Instructions Date Instruction Additional Infor mation No Information Assessments Type Assessment Date No Information Patient Care Teams Name Effective Dates (start - stop) Status Members No Information
--- NOTE | 2025-07-28 | ECHO_ITS ---
Patient Info Name: Kena Phelps Age: 89 years : 1935 Gender: Female Ht: 63 in Wt: 135 lbs BSA: 1.66 m2 HR: 66 bpm BP: 148 / 82 mmHg Heart Rhythm: Sinus Rhythm Technical Quality: Good Exam Date: 07/28/2025 9:57 AM Patient Status: O Admit Date: 07/28/2025 Exam Type: CA echo doppler color flow Complete two-dimensional, color flow and Doppler transthoracic echocardiogram is performed. Instructor Painting: Jurgen Chacko III Attending Provider: Hernesto Terry Summary 1. Complete two-dimensional, color flow and Doppler transthoracic echocardiogram is performed. 2. The left ventricle is normal in size and systolic function. There is concentric left ventricular remodeling. The left ventricular ejection fraction is visually estimated to be 60-65%. There is grade 2 diastolic dysfunction. 3. The aortic valve is trileaflet and sclerotic. There is moderate aortic regurgitation. 4. There is mild biatrial enlargement. Left Ventricle The left ventricle is normal in size and systolic function. There is concentric left ventricular remodeling. The left ventricular ejection fraction is visually estimated to be 60-65%. There is grade 2 diastolic dysfunction. Right Ventricle The right ventricle is normal in size and systolic function. Left Atria The left atrium is mildly dilated. Right Atria The right atrium is mildly dilated. Atrial Septum The atrial septum is visually intact. Aortic Valve The aortic valve is trileaflet and sclerotic. There is moderate aortic regurgitation. Pulmonic Valve The pulmonic valve is not well visualized. There is no color Doppler evidence of pulmonic valve regurgitation. Mitral Valve The mitral valve leaflets are sclerotic. There is mild mitral regurgitation. There is annular calcification. Tricuspid Valve The tricuspid valve is normal. There is trace tricuspid regurgitation. Pericardium/Pleural Pericardium is normal in appearance with no evidence for significant pericardial effusion. Inferior Vena Cava Normal inferior vena cava with >50% collapse upon inspiration consistent with normal right atrial pressure, 3 mmHg. Aorta The aortic root at the level of the sinus of Valsalva measures 2.8 cm in diameter. Left Ventricular Outflow Tract Name Value Normal LVOT 2D LVOT Diameter 2.0 cm LVOT Doppler LVOT Peak Velocity 104 cm/s LVOT Peak Gradient 4 mmHg LVOT Mean Gradient 2 mmHg LVOT VTI 26 cm LVOT VTI/AV VTI Ratio 0.6 LVOT Stroke Volume 78 ml LVOT CO 12.6 l/min LVOT CI 7.6 l/min/m2 Pulmonic Valve Name Value Normal PV Doppler PV Peak Velocity 67 cm/s PV Peak Gradient 2 mmHg PV Mean Gradient 1 mmHg Mitral Valve Name Value Normal MV Doppler MV Peak Gradient 9 mmHg MV Mean Gradient 3 mmHg MV Area (Cont Eq VTI) 2.1 cm2 MV Regurgitation Doppler MR Peak Gradient 145 mmHg MV Diastolic Function MV E Peak Velocity 141 cm/s MV A Peak Velocity 100 cm/s MV E/A 1.4 MV Decel Time (PW) 220 ms MV Annular TDI MV E/e' (Septal) 24.9 MV E/e' (Lateral) 31.3 MV E/e' (Average) 28.1 Tricuspid Valve Name Value Normal Estimated PAP/RSVP RA Pressure 3 mmHg <=5 TV Annular TDI TV Lateral Elicia s' Velocity 11.7 cm/s >=9.5 Aortic Valve Name Value Normal AV Doppler AV Peak Velocity 184 cm/s AV Peak Gradient 11 mmHg AV Mean Gradient 5 mmHg AV VTI 41 cm AV Area (Cont Eq VTI) 1.9 cm2 >=3.0 AV Area (Cont Eq Terrence) 1.7 cm2 AV DI (Terrence) 0.57 AV Regurgitation 2D LVOT Area 3.0 cm2 Ventricles Name Value Normal LV Dimensions 2D/MM IVS Diastolic Thickness (2D) 1.2 cm 0.6-1.0 LVID Diastole (2D) 3.4 cm 3.8-5.2 LVIW Diastolic Thickness (2D) 0.9 cm 0.6-0.9 LVID Systole (2D) 2.6 cm 2.2-3.5 LVOT Diameter 2.0 cm LV Mass (2D Cubed) 109.00 g 67.00-162.00 LV Mass Index (2D Cubed) 66 g/m2 43-95 Relative Wall Thickness (2D) 0.55 <=0.42 LV Fractional Shortening/Ejection Fraction 2D/MM LV Fractional Shortening (2D) 23 % 27-45 LV EF (2D Teichholz) 47 % LV Diastolic Volume (4C MOD) 59 ml LV EF (4C MOD) 58 % LV Diastolic Length (4C) 7.1 cm LV Systolic Length (4C) 5.7 cm LV Stroke Volume (4C MOD) 34 ml Atria Name Value Normal LA Dimensions LA Volume (4C A-L) 71 ml LA Volume (BP A-L) 75 ml RA Dimensions RA Systolic [place] Length (4C) 5.4 cm 2.2-2.8 RA Area (4C) 14.4 cm2 <=18.0 Report Signatures
--- OUTSIDE RECORDS SUMMARY | 2025-07-28 09:37 | XMS_ITS | Clinical Summary ---
Author Organization [facility] Address [address] [place] [address] Phone Care Team Providers Care Web Coordinator Name Role Phone Wade Almaguer MD Primary Care Provider [phone] Allergies Active Allergy Reactions Criticality Noted Date [...] tablet Take 75 mcg by mouth daily manager poker. Active enalapril (VASOTEC) 2.5 mg tablet Take 2.5 mg by mouth daily. Active fluticasone (FLONASE) 50 mcg/spray [place], Suspension Administer 2 Sprays in each nostril [...] needed for Allergies. Active naphazoline-phe niramine (OPCON-A) 0.80816-7.315 % solution 1 Drop 3 times daily [...] 62.6 kg (138 lb) 10/09/2016 1:28 PM MAILING CLERK Height 157.5 cm (5' 2) 10/09/2016 1:28 PM MAILING CLERK Body Mass Index 25.24 10/09/2016 1:28 PM MAILING CLERK Plan of Treatment Health Maintenance Due Date Last Done Comments DTAP/TDAP/TD VACCINES (1 - Tdap) 1956 ZOSTER VACCINE (1 of 2) 1987 OSTEOPOROSIS SCREENING 2002 RSV VACCINE (60+ or ) (1 - 1-dose 75+ series) 2012 PNEUMOCOCCAL VACCINE 50+ YEA RS (2 of 2 - PCV20 or PCV21) 08/10/2017 08/10/2016 INFLUENZA VACCINE (#1) 2025 08/31/2015 Medical Devices Implanted Type Area Jewel Bearing Broacher Device Identifier Shelf Expiration Date Model / Serial / Lot Cement [place] Hv 40g [id number] - [id number] Implanted:Qty: 1 on 08/08/2016 by Sudhir Shah MD at [facility] Cement Left: Knee [employer] [id number] 01/28/2018 [id number] / / [id number] Patella Gnsii Resurf 32mm [id number] - [id number] Implanted:Qty: 1 on 08/08/2016 by Sudhir Shah MD at [facility] Knee Left: Knee ESPINAL NEPHEW ORTHO [id number] 03/27/2026 [id number] / / [id number] Description:All S&N recon kn ee components are processed on requisition,5103135. Comp Fem Gnsii Cr Quality Assurance Qa Lab Technician Lt 5010-9233 - [id number] Implanted:Qty: 1 on 08/08/2016 by Sudhir Shah MD at [facility] Knee Left: Knee [employer] [id number] 04/15/2026 [id number] / / [id number] Comp Tib Gnsii Quality Assurance Qa Lab Technician Sz3 Lt [id number] - [id number] Implanted:Qty: 1 on 08/08/2016 by Sudhir Shah MD at [facility] Knee Left: Knee ESP[employer]AL [employer]O [id number] 05/28/2026 [id number] / / [id number] Ins Lgn Xlpe Dishd Sz3-4 [id number] - [id number] Implanted:Qty: 1 on 08/08/2016 by Sudhir Shah MD at [facility] Knee Left: Knee ESP[employer] [id number] 04/22/2026 [id number] / / [id number] Insurance [facility] [id number] [place] [address] Advance Directives For more information, please contact: [phone] * Full Code (Latest Code Status on File) Date Activated Date Inactivated Comments 08/08/2016 1:51 PM 08/10/2016 6:23 PM * Full Code Date Activated Date Inactivated Comments 08/08/2016 8:38 AM 08/08/2016 1:51 PM Care Teams Web Coordinator Relationship Specialty Start Date End Date Wade Almaguer MD [address] [facility] [address] [place] [id number] PCP - General Family Practice 07/10/16
--- OUTSIDE RECORDS SUMMARY | 2025-07-28 09:37 | XMS_ITS | Clinical Summary ---
Author Organization [facility] Address [address] [place] [address] Care Team Providers Care Portfolio Specialist Name Role Phone Hernesto Terry MD Primary Care Provider [phone] Source Comments [facility],non-owned Affiliates and Associated Physician Practices is amultiple site organization consisting of ambulatory clinics and hospital sitesin [place], [place], [place] and [place]. This disclosure is being madepursuant to the Care Everywhere program and may not contain all information available regarding this patient. 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 Gender Identity Not on file Sexual Orientation Not on file Last Filed Vital Signs Vital Sign Reading Time Taken Comments Blood Pressure 160/70 07/17/2020 12:55 PM CDT Pulse 75 07/17/2020 12:55 PM CDT Temperature 36.7 C (98 F) 07/17/2020 12:55 PM CDT Respiratory Rate 10 11/09/2019 11:2 0 AM ORE MIXER Oxygen Saturation 98% 07/17/2020 12: 55 PM CDT Inhaled Oxygen Concentration 21% 08/2019 12:30 PM ORE MIXER Weight 60.7 kg (133 lb 12.8 oz) [...] Documents on File Type Date Recorded 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
== END 2025-07-28 09:20 | disposition home or self-care (01) ==
LOC: ANHCARD 09:25
PROVIDERS: PCP Internal Medicine; Visit Provider Internal Medicine
DX: R01.1 Cardiac murmur, unspecified (principal); I35.1 Nonrheumatic aortic (valve) insufficiency; I51.7 Cardiomegaly
CPT/HCPCS: 93306

== ENCOUNTER 2025-08-02 09:55 | Outpatient (CLI) | payer MEDICARE, SELFPAY ==
--- NOTE | ~2025-08-02 | XR_ITS ---
XR chest 2V 08/02/2025 10:18 Indication: Shortness of breath. Procedure: 2 view chest Comparison: 06/09/2025 Findings: Large hiatal hernia with air-fluid level. No focal air space disease, pulmonary edema, pleural effusion or suspected pneumothorax. Heart size normal. Impression: 1: No acute cardiopulmonary disease. 2: Large hiatal hernia. Reviewed, dictated and finalized at location O. Impression: 1: No acute cardiopulmonary disease. 2: Large hiatal hernia.
--- OUTSIDE RECORDS SUMMARY | 2025-08-02 10:23 | XMS_ITS | Clinical Summary ---
Author Organization [facility] Address [address] [address] Care Team Providers Care Manager Enrollment Name Role Phone Hernesto Terry MD Primary Care Provider [phone] Source Comments [facility],non-owned Affiliates and Associated Physician Practices is amultiple site organization consisting of ambulatory clinics and hospital sitesin [place], [place], [place] and [place]. This disclosure is being madepursuant to the Care Everywhere program and may not contain all information available regarding this patient. 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 Gender Identity Not on file Sexual Orientation Not on file Last Filed Vital Signs Vital Sign Reading Time Taken Comments Blood Pressure 160/70 07/17/2020 12:55 PM CDT Pulse 75 07/17/2020 12:55 PM CDT Temperature 36.7 C (98 F) 07/17/2020 12:55 PM CDT Respiratory Rate 10 11/09/2019 11:2 0 AM HEEL FORMER Oxygen Saturation 98% 07/17/2020 12: 55 PM CDT Inhaled Oxygen Concentration 21% 08/2019 12:30 PM HEEL FORMER Weight 60.7 kg (133 lb 12.8 oz) [...] Documents on File Type Date Recorded 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
--- OUTSIDE RECORDS SUMMARY | 2025-08-02 10:23 | XMS_ITS | Clinical Summary ---
Author Organization [facility] Address [address] [place] [address] Phone Care Team Providers Care Bender Machine Operator Name Role Phone Wade Almaguer MD Primary Care Provider [phone] Allergies Active Allergy Reactions Criticality Noted Date [...] tablet Take 75 mcg by mouth daily block press operator. Active enalapril (VASOTEC) 2.5 mg tablet Take 2.5 mg by mouth daily. Active fluticasone (FLONASE) 50 mcg/spray [place], Suspension Administer 2 Sprays in each nostril [...] needed for Allergies. Active naphazoline-phe niramine (OPCON-A) 0.29387-5.315 % solution 1 Drop 3 times daily [...] 62.6 kg (138 lb) 10/09/2016 1:28 PM AIRPORT CLERK Height 157.5 cm (5' 2) 10/09/2016 1:28 PM AIRPORT CLERK Body Mass Index 25.24 10/09/2016 1:28 PM AIRPORT CLERK Plan of Treatment Health Maintenance Due Date Last Done Comments DTAP/TDAP/TD VACCINES (1 - Tdap) 1956 ZOSTER VACCINE (1 of 2) 1987 OSTEOPOROSIS SCREENING 2002 RSV VACCINE (60+ or ) (1 - 1-dose 75+ series) 2012 PNEUMOCOCCAL VACCINE 50+ YEA RS (2 of 2 - PCV20 or PCV21) 08/10/2017 08/10/2016 INFLUENZA VACCINE (#1) 2025 08/31/2015 Medical Devices Implanted Type Area Chain Person Device Identifier Shelf Expiration Date Model / Serial / Lot Cement [place] Hv 40g [id number] - [id number] Implanted:Qty: 1 on 08/08/2016 by Sudhir Shah MD at [facility] Cement Left: Knee [employer] [id number] 01/28/2018 [id number] / / [id number] Patella Gnsii Resurf 32mm 8125-2909 - [id number] Implanted:Qty: 1 on 08/08/2016 by Sudhir Shah MD at [facility] Knee Left: Knee [employer]O [id number] 03/27/2026 [id number] / / [id number] Description:All S&N recon kn ee components are processed on requisition,5176844. Comp Fem Gnsii Cr Snubber Lt [id number] - [id number] Implanted:Qty: 1 on 08/08/2016 by Sudhir Shah MD at [facility] Knee Left: Knee [employer] [id number] 04/15/2026 [id number] / / [id number] Comp Tib Gnsii Snubber Sz3 Lt [id number] - [id number] Implanted:Qty: 1 on 08/08/2016 by Sudhir Shah MD at [facility] Knee Left: Knee [employer] [id number] 05/28/2026 [id number] / / [id number] Ins Lgn Xlpe Dishd Sz3-4 [id number] - [id number] Implanted:Qty: 1 on 08/08/2016 by Sudhir Shah MD at [facility] Knee Left: Knee ESP[employer]O [id number] 04/22/2026 [id number] / / [id number] Insurance [facility] [id number] Advance Directives For more information, please contact: [phone] * Full Code (Latest Code Status on File) Date Activated Date Inactivated Comments 08/08/2016 1:51 PM 08/10/2016 6:23 PM * Full Code Date Activated Date Inactivated Comments 08/08/2016 8:38 AM 08/08/2016 1:51 PM Care Teams Bender Machine Operator Relationship Specialty Start Date End Date Wade Almaguer MD [address] [place] [id number] PCP - General Family Practice 07/10/16
== END 2025-08-02 09:56 | disposition home or self-care (01) ==
PROVIDERS: PCP Internal Medicine; Visit Provider Internal Medicine
DX: K44.9 Diaphragmatic hernia without obstruction or gangrene (principal)
CPT/HCPCS: 71046